=== PATIENT | male | born 1940 | race Caucasian/White ===

== ENCOUNTER → 2016-05-26 | Outpatient (CLI) | payer OTHER ==
[~2016-05-26] MED LIST: ASPI81TA28 PO; ATOR-26 PO; LSN40 PO; METO25TA56 PO; MULT-878 PO
--- NOTE | 2016-05-26 13:48 | DIAGNOSTIC IMAGING REPORT ---
RENAL ULTRASOUND HISTORY: Renal cyst N28.1 Cyst of kidney, acquired COMPARISON: MRI abdomen dated 06/07/2015 FINDINGS: Right kidney: Maximum dimension 10.9 cm. Multiple cysts measuring up to 2.9 cm, diminished somewhat from the prior study. No change overall compared to the MRI study Normal corticomedullary differentiation and cortical thickness. Left kidney: Maximum dimension 11.2 cm. Multiple cysts are again noted. Complexes produces described is now considered clear Normal corticomedullary differentiation and cortical thickness. Bladder: No bladder wall thickening. The bilateral ureteral jets were identified. IMPRESSION: Bilateral renal cysts all of which appear to be simple by ultrasound criteria. No evidence for complex cystic change. Electronically signed by: Jorge Alberto Wilson M.D. 05/26/2016 1:47 PM Dictated Date/Time: 05/26/2016 1:40 PM
== END | disposition home or self-care (01) ==
LOC: C.ULTR 12:18
PROVIDERS: ATTEND Urology
DX: N28.1 Cyst of kidney, acquired (principal)

== ENCOUNTER → 2016-06-23 | Outpatient (CLI) | payer OTHER ==
[2016-06-23 13:46] LABS: BLOOD UREA NITROGEN 29 mg/dl (7-18); BUN/CREATININE RATIO 21.9 (10-20)
== END | disposition home or self-care (01) ==
LOC: C.LABMFLN 10:51
PROVIDERS: ATTEND Urology
DX: R35.0 Frequency of micturition (principal)

== ENCOUNTER 2016-07-02 19:29 | Emergency (ER) | payer OTHER ==
[~2016-07-02] VITALS: Ht 170.2 cm; Wt 87.1 kg
[2016-07-02 19:41] VITALS: TEMP 37.3; Ht 170.2 cm; Wt 87.1 kg
[2016-07-02] MEDS ORDERED: MULT-878 PO (20:45)
[2016-07-02] MEDS ORDERED: LSN40 PO (20:45)
[2016-07-02] MEDS ORDERED: ASPI81TA28 PO (20:45)
[2016-07-02] MEDS ORDERED: ATOR-26 PO (20:45)
[2016-07-02] MEDS ORDERED: METO25TA56 PO (20:45)
[2016-07-02] MEDS ORDERED: HydrALAZINE HCL 20 MG/ML VIAL IV. STA (21:35)
[2016-07-02 21:55] VITALS: O2SAT 98
[2016-07-02 22:07] LABS: BASO % 0.4 %; BASO ABS # 0.04 K/uL (0-0.2); COMPLETE YES; EOS % 1.1 %; HEMATOCRIT 46.8 % (42-52); IG% 0.1 %; LYMPH % 18.6 %; LYMPH ABS # 1.68 K/uL (1.2-3.4); MEAN CELL VOLUME 95.7 fL (80-100); MEAN CORPUSCULAR HEMOGLOBIN 33.3 pg (25-34); MEAN CORPUSCULAR HGB CONC 34.8 g/dl (32-36); MEAN PLATELET VOLUME 11.5 fL (7.4-10.4); MONO % 14.1 %; NEUT % 65.7 %; PLATELET COUNT 194 K/uL (130-400); RED BLOOD COUNT 4.89 M/uL (4.7-6.1); WHITE BLOOD COUNT 9.02 K/uL (4.8-10.8)
--- NOTE | 2016-07-02 22:09 | DIAGNOSTIC IMAGING REPORT ---
HEAD CT NONCONTRAST CT DOSE: 537.48 mGy.cm HISTORY: Mental status change MAHMOOD, HTN TECHNIQUE: Multiaxial CT images of the head were performed without the use of intravenous contrast. Comparison: None. Findings: The paranasal sinuses and mastoid air cells are clear. The calvarium and skull base are intact. The ventricles and sulci are within normal limits. There is no mass, hematoma, midline shift, or acute infarct. Impression: No acute intracranial abnormality. Electronically signed by: Jorge Alberto Wilson M.D. 07/02/2016 10:07 PM Dictated Date/Time: 07/02/2016 10:06 PM
[2016-07-02 22:31] LABS: ALKALINE PHOSPHATASE 109 U/L (45-117); ALT/SGPT 26 U/L (12-78); AST/SGOT 26 U/L (15-37); BLOOD UREA NITROGEN 21 mg/dl (7-18); BUN/CREATININE RATIO 18.9 (10-20); CALCIUM 9.4 mg/dl (8.5-10.1); CARBON DIOXIDE 27 mmol/L (21-32); CHLORIDE 107 mmol/L (98-107); GLUCOSE 103 mg/dl (70-99); POTASSIUM 4.6 mmol/L (3.5-5.1); SODIUM 142 mmol/L (136-145)
--- NOTE | 2016-07-02 23:09 | EMERGENCY ROOM VISIT NOTE ---
ED Visit Note First contact with patient: 21:26 The patient was seen and examined with Domenica Kam PA-C. I agree with the history, physical and findings. Please see the note for disposition and details. The patient's hypertension was treated. CT Negative. The troponin was mildly elevated. The patient was feeling well. Family was updated. Consultation was made with Dr. Watts from internal medicine for further evaluation. After internal medicine evaluation, the patient had additional treatment and a repeat troponin ordered by Dr. Watts. The repeat troponin was less as reported and blood pressure was controlled. Per internal medicine, the patient preferred to go home did not want to stay in the hospital. The patient was dispositioned by Dr. Watts.
[2016-07-02 23:11] LABS: PROTHROMBIN TIME (PATIENT) 10.9 SECONDS (9.0-12.0)
[2016-07-03] MEDS ORDERED: LABETALOL HCL IV 5 MG/ML 20ML IV SCH (00:45)
--- NOTE | 2016-07-03 01:23 | History and Physical ---
History & Physical Date & Time of Service: Jul 03, 2016 at 01:05 Chief Complaint: Headache,High Bp Last 24 Hours Primary Care Physician: Gabbi Greenberg M.D. History of Present Illness Source: patient 76 y/o M Hx CAD, HTN, HPL, active prostate CA, asplenia. Had recent adjustments to his antihypertensives with D/C of Norvasc and doubling of Lisinopril. Pt developed a severe global MAHMOOD 1 day prior. Denies any associated visual changes, CP, SOB, N/V. He checked his BP and noted that it was over 180 systolic. Initial labs obtained in the ER show a borderline troponin. EKG is not consistent with ischemia and the pt does not have any related symptoms. 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 Smoking Status: Never Smoker Marital Status: Allergies Coded Allergies: Amiodarone (Verified Allergy, Unknown, rash, 07/02/16) Ciprofloxacin (Verified Allergy, Unknown, rash, 07/02/16) Home Medications Scheduled Aspirin (Aspirin Ec), 81 MG PO QAM Atorvastatin (Lipitor), 80 MG PO QPM Lisinopril (Lisinopril), 40 MG PO QAM Metoprolol Tartrate (Lopressor) (Lopressor), 25 MG PO BID Multivitamins/Minerals (Cerovite Advanced Formula), 1 TAB PO QAM Review of Systems Constitutional: No chills, No fever, No sweats Eyes: No worsening of vision ENT: No hearing loss, No nasal symptoms, No unusual epistaxis Respiratory: No cough, No sputum, No wheezing Cardiovascular: No PND, No chest pain, No orthopnea Abdomen: No nausea, No pain, No vomiting Musculoskeletal: No joint pain, No muscle pain Genitourinary - Male: No dysuria, No hematuria, No urinary frequency, No urinary urgency Neurologic: + problem reported (headache as above), No memory loss, No paralysis, No weakness Psychiatric: No depression symptoms Endocrine: No fatigue Hematologic / Lymphatic: No abnormal bleeding/bruising Integumentary: No rash Allergic / Immunologic: No environmental allergies Physical Exam Vital Signs Date Time Temp Pulse Resp B/P Pulse Ox O2 Delivery O2 Flow Rate FiO2 07/03/16 00:29 68 20 181/95 94 07/03/16 00:00 70 16 168/98 95 Room Air 07/02/16 23:26 69 20 155/89 93 Room Air 07/02/16 23:00 72 20 193/115 94 Room Air 07/02/16 22:29 66 22 07/02/16 22:17 193/97 07/02/16 21:55 98 Room Air 07/02/16 21:37 60 18 202/112 95 Room Air 07/02/16 21:37 202/122 07/02/16 21:29 60 15 07/02/16 20:29 68 22 07/02/16 20:26 98 Room Air 07/02/16 20:20 58 07/02/16 20:16 182/116 07/02/16 19:41 37.3 81 18 187/104 98 Room Air General Appearance: WD/WN, no apparent distress Head: normocephalic, atraumatic Eyes: normal inspection, PERRL, EOMI ENT: normal ENT inspection, pharynx normal Neck: supple, no JVD Respiratory/Chest: chest non-tender, lungs clear, normal breath sounds, no respiratory distress, no accessory muscle use Cardiovascular: regular rate, rhythm, no edema, no gallop Abdomen/GI: normal bowel sounds, non tender, soft Back: normal inspection, no CVA tenderness, no muscle spasm Extremities/Musculoskelatal: normal inspection, no calf tenderness, normal capillary refill 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, no motor/sensory deficits, alert, normal mood/affect, normal reflexes, oriented x 3 Skin: + pertinent finding (facial erythema) Diagnostics Laboratory Results Results Past 24 Hours Test 07/02/16 21:53 07/02/16 22:43 Range/Units White Blood Count 9.02 4.8-10.8 K/uL Red Blood Count 4.89 4.7-6.1 M/uL Hemoglobin 16.3 14.0-18.0 g/dL Hematocrit 46.8 42-52 % Mean Corpuscular Volume 95.7 80-100 fL Mean Corpuscular Hemoglobin 33.3 25-34 pg Mean Corpuscular Hemoglobin Concent 34.8 32-36 g/dl Platelet Count 194 130-400 K/uL Mean Platelet Volume 11.5 7.4-10.4 fL Neutrophils (%) (Auto) 65.7 % Lymphocytes (%) (Auto) 18.6 % Monocytes (%) (Auto) 14.1 % Eosinophils (%) (Auto) 1.1 % Basophils (%) (Auto) 0.4 % Neutrophils # (Auto) 5.92 1.4-6.5 K/uL Lymphocytes # (Auto) 1.68 1.2-3.4 K/uL Monocytes # (Auto) 1.27 0.11-0.59 K/uL Eosinophils # (Auto) 0.10 0-0.5 K/uL Basophils # (Auto) 0.04 0-0.2 K/uL RDW Standard Deviation 52.4 36.4-46.3 fL RDW Coefficient of Variation 14.8 11.5-14.5 % Immature Granulocyte % (Auto) 0.1 % Immature Granulocyte # (Auto) 0.01 0.00-0.02 K/uL Sodium Level 142 136-145 mmol/L Potassium Level 4.6 3.5-5.1 mmol/L Chloride Level 107 98-107 mmol/L Carbon Dioxide Level 27 21-32 mmol/L Anion Gap 8.0 3-11 mmol/L Blood Urea Nitrogen 21 7-18 mg/dl Creatinine 1.10 0.60-1.40 mg/dl Est Creatinine Clear Calc Drug Dose 60.2 ml/min Estimated GFR () 75.2 Estimated GFR (Non- 64.9 BUN/Creatinine Ratio 18.9 10-20 Random Glucose 103 70-99 mg/dl Calcium Level 9.4 8.5-10.1 mg/dl Total Bilirubin 0.8 0.2-1 mg/dl Direct Bilirubin 0.2 0-0.2 mg/dl Aspartate Amino Transf (AST/SGOT) 26 15-37 U/L Alanine Aminotransferase (ALT/SGPT) 26 12-78 U/L Alkaline Phosphatase 109 45-117 U/L Troponin I 0.052 0-0.045 ng/ml Total Protein 6.5 6.4-8.2 gm/dl Albumin 3.3 3.4-5.0 gm/dl Prothrombin Time 10.9 9.0-12.0 SECONDS Prothromb Time International Ratio 1.0 0.9-1.1 Activated Partial Thromboplast Time 25.0 21.0-31.0 SECONDS Partial Thromboplastin Ratio 1.0 EKG NSR Normal EKG Impression Assessment and Plan 76 y/o M Hx CAD, HTN, HPL, active prostate CA, asplenia. Had recent adjustments to his antihypertensives with D/C of Norvasc and doubling of Lisinopril. Pt developed a severe global MAHMOOD 1 day prior. Denies any associated visual changes, CP, SOB, N/V. He checked his BP and noted that it was over 180 systolic. Initial labs obtained in the ER show a borderline troponin. EKG is not consistent with ischemia and the pt does not have any related symptoms. He received an Hydralazine and Labetalol in the ER 1) HTN/MAHMOOD received Hydralazine x 1 and IV Labetalol - SBP 150 at time of D/C - no MAHMOOD 2) Borderline troponin - .05 possibly due to HTN - clinical presentation and EKG are not consistent with ACS - troponin repeat .042 Pt has been told to contact his soil checker for further medication adjustments and to discuss his ER visit for MAHMOOD related to HTN. Would recommend he continue Norvasc at 5mg in addition to his B catrachita and Lisinopril pending discussion with his soil checker. Informed to return to the ER with CP, SOB, unremitting MAHMOOD, inability to control BP for an extended period or new symptoms. Discussed above with pt , and daughter - pt stated that he prefers to go home and also has an appt with his urologist at 2:45 that he would like to attend. Resuscitation Status FULL RESUSCITATION VTE Prophylaxis Risk Level: Low
[2016-07-03 03:06] VITALS: BP 164/91; PULSE 78; O2SAT 91
--- NOTE | 2016-07-03 06:01 | EMERGENCY ROOM VISIT NOTE ---
History First contact with patient: 21:26 Chief Complaint: HYPERTENSION Stated Complaint: HEADACHE,HIGH BP LAST 24 HOURS History of Present Illness The patient is a 76 year old male who presents to the Emergency Room with complaints of severe headache and elevated blood pressure with fatigue for the past day. Blood pressure is 190/100. He describes a headache as throbbing, ranging in severity 9 out of 10 to the frontal region. Patient states one month ago his general adjuster change up his blood pressure medications from DC amlodipine and increasing lisinopril to 40 mg daily. Patient states his blood pressure was fine until yesterday. Patient denies chest pain, dyspnea, fever, chills, cough, congestion, numbness, tingling, localized weakness, abdominal pain, vision problems, vomiting, diarrhea, leg pain or swelling. No history of CVA. Review of Systems See HPI for pertinent positives & negatives. A total of 10 systems reviewed and were otherwise negative. Past Medical/Surgical History Medical Problems: (1) Coronary artery disease Surgical Problems: (1) H/O percutaneous transluminal coronary angioplasty (2) S/P CABG (coronary artery bypass graft) (3) Stented coronary artery Hypertension, hyperlipidemia, coronary disease, splenectomy Social History Smoking Status: Never Smoker Marital Status: Current/Historical Medications Scheduled Aspirin (Aspirin Ec), 81 MG PO QAM Atorvastatin (Lipitor), 80 MG PO QPM Lisinopril (Lisinopril), 40 MG PO QAM Metoprolol Tartrate (Lopressor) (Lopressor), 25 MG PO BID Multivitamins/Minerals (Cerovite Advanced Formula), 1 TAB PO QAM Allergies Coded Allergies: Amiodarone (Verified Allergy, Unknown, rash, 07/02/16) Ciprofloxacin (Verified Allergy, Unknown, rash, 07/02/16) Physical Exam Vital Signs Date Time Temp Pulse Resp B/P Pulse Ox O2 Delivery O2 Flow Rate FiO2 07/03/16 03:06 78 16 164/91 91 07/03/16 02:30 67 22 153/83 92 Room Air 07/03/16 02:04 66 20 112/62 91 Room Air 07/03/16 01:32 69 22 150/73 93 Room Air 07/03/16 01:10 71 20 147/80 92 Room Air 07/03/16 01:04 72 22 172/90 92 Room Air 07/03/16 01:01 74 22 171/100 92 Room Air 07/03/16 00:59 70 24 165/93 94 Room Air 07/03/16 00:29 68 20 181/95 94 07/03/16 00:10 75 07/03/16 00:00 70 16 168/98 95 Room Air 07/02/16 23:26 69 20 155/89 93 Room Air 07/02/16 23:00 72 20 193/115 94 Room Air 07/02/16 22:29 66 22 07/02/16 22:17 193/97 07/02/16 21:55 98 Room Air 07/02/16 21:37 60 18 202/112 95 Room Air 07/02/16 21:37 202/122 07/02/16 21:29 60 15 07/02/16 20:29 68 22 07/02/16 20:26 98 Room Air 07/02/16 20:20 58 07/02/16 20:16 182/116 07/02/16 19:41 37.3 81 18 187/104 98 Room Air Pain Rating (0-10): 0 Physical Exam VITALS: Vitals are noted on the nurse's note and reviewed by myself. Vital signs hypertensive GENERAL: Pleasant male, in no acute distress, nondiaphoretic, well-developed well-nourished. SKIN: The skin was without rashes, erythema, edema, or bruising. There is no tenting of the skin. Capillary reflex less than 2 seconds. HEAD: Normocephalic atraumatic. EARS: External auditory canals clear, tympanic membranes pearly crews without erythema or effusion bilaterally. EYES: Pupils equal round and reactive to light and accommodation. Conjunctivae without injection, sclerae without icterus. Extraocular movements intact. NOSE: Patent, turbinates without inflammation or discharge. No sinus tenderness. MOUTH: Mucous membranes moist. Pharynx without erythema or exudate. Uvula midline. Airway patent. Tongue does not deviate. NECK: Supple without nuchal rigidity. No lymphadenopathy. No thyromegaly. Cervical spine is nontender. No JVD. HEART: Regular rate and rhythm LUNGS: Clear to auscultation bilaterally without wheezes, rales or rhonchi. No dullness to percussion. No retractions or accessory muscle use. ABDOMEN: Positive bowel sounds x 4. Normal tympanic percussion. Soft, nontender, without masses or organomegaly. Sarmiento sign negative. No guarding or rebound tenderness. MUSCULOSKELETAL: No muscle atrophy, erythema, or edema noted. NEURO: Patient was alert and oriented to person place and time. Normal sensation to light and sharp touch. No focal neurological deficits. 5 out of 5 strength throughout. Cranial nerves II through XII grossly intact. No pronator drift. Cerebellar exam intact Medical Decision & Procedures Laboratory Results 07/02/16 21:53 Red Blood Count 4.89, Mean Corpuscular Volume 95.7, Mean Corpuscular Hemoglobin 33.3, Mean Corpuscular Hemoglobin Concent 34.8, Mean Platelet Volume 11.5, Neutrophils (%) (Auto) 65.7, Lymphocytes (%) (Auto) 18.6, Monocytes (%) (Auto) 14.1, Eosinophils (%) (Auto) 1.1, Basophils (%) (Auto) 0.4, Neutrophils # (Auto ) 5.92, Lymphocytes # (Auto) 1.68, Monocytes # (Auto) 1.27, Eosinophils # (Auto ) 0.10, Basophils # (Auto) 0.04 07/02/16 21:53 Test 07/02/16 21:53 07/02/16 22:43 07/03/16 01:59 White Blood Count 9.02 K/uL (4.8-10.8) Red Blood Count 4.89 M/uL (4.7-6.1) Hemoglobin 16.3 g/dL (14.0-18.0) Hematocrit 46.8 % (42-52) Mean Corpuscular Volume 95.7 fL (80-100) Mean Corpuscular Hemoglobin 33.3 pg (25-34) Mean Corpuscular Hemoglobin Concent 34.8 g/dl (32-36) Platelet Count 194 K/uL (130-400) Mean Platelet Volume 11.5 fL (7.4-10.4) Neutrophils (%) (Auto) 65.7 % Lymphocytes (%) (Auto) 18.6 % Monocytes (%) (Auto) 14.1 % Eosinophils (%) (Auto) 1.1 % Basophils (%) (Auto) 0.4 % Neutrophils # (Auto) 5.92 K/uL (1.4-6.5) Lymphocytes # (Auto) 1.68 K/uL (1.2-3.4) Monocytes # (Auto) 1.27 K/uL (0.11-0.59) Eosinophils # (Auto) 0.10 K/uL (0-0.5) Basophils # (Auto) 0.04 K/uL (0-0.2) RDW Standard Deviation 52.4 fL (36.4-46.3) RDW Coefficient of Variation 14.8 % (11.5-14.5) Immature Granulocyte % (Auto) 0.1 % Immature Granulocyte # (Auto) 0.01 K/uL (0.00-0.02) Anion Gap 8.0 mmol/L (3-11) Est Creatinine Clear Calc Drug Dose 60.2 ml/min Estimated GFR () 75.2 Estimated GFR (Non- 64.9 BUN/Creatinine Ratio 18.9 (10-20) Calcium Level 9.4 mg/dl (8.5-10.1) Total Bilirubin 0.8 mg/dl (0.2-1) Aspartate Amino Transf (AST/SGOT) 26 U/L (15-37) Alanine Aminotransferase (ALT/SGPT) 26 U/L (12-78) Alkaline Phosphatase 109 U/L (45-117) Total Protein 6.5 gm/dl (6.4-8.2) Albumin 3.3 gm/dl (3.4-5.0) Prothrombin Time 10.9 SECONDS (9.0-12.0) Prothromb Time International Ratio 1.0 (0.9-1.1) Activated Partial Thromboplast Time 25.0 SECONDS (21.0-31.0) Partial Thromboplastin Ratio 1.0 Direct Bilirubin 0.2 mg/dl (0-0.2) Troponin I 0.043 ng/ml (0-0.045) Medications Administered Medications (Trade) Dose Ordered Sig/Tico Route Start Time Stop Time Status Last Admin Dose Admin Hydralazine HCl (HydrALAZINE INJ) 10 mg NOW STAT IV. 07/02/16 21:35 07/02/16 21:38 DC 07/02/16 21:59 10 MG Labetalol HCl (Normodyne IV) 10 mg NOW IV 07/03/16 00:45 07/03/16 03:53 DC 07/03/16 00:58 10 MG ED Course Prior records/ancillary studies reviewed regarding the history above. Triage Nursing notes reviewed. Additional history obtained from the family. The patient's history was concerning for hypertension. Differential diagnosis: Etiologies such as benign hypertension, hypertensive emergency, cardiovascular pathology, pheochromocytoma, electrolyte abnormality, renal disease, endorgan damage, as well as others were entertained. Physical examination: As above. No signs of end organ damage. ER treatment provided: Hydralazine On reassessment the patient felt better. Diagnostic interpretation by me: The electrocardiogram was sinus, normal intervals, Q waves in the inferior leads , rate 62, no acute ST-T wave changes. Impression normal sinus rhythm with Q waves in inferior leads interpreted by myself. The labs revealed mildly elevated troponin. Repeat troponin is negative Imaging studies: Chest x-ray with no acute consolidation, pneumothorax free air per my interpretation HEAD CT NONCONTRAST CT DOSE: 537.48 mGy.cm HISTORY: Mental status change MAHMOOD, HTN TECHNIQUE: Multiaxial CT images of the head were performed without the use of intravenous contrast. Comparison: None. Findings: The paranasal sinuses and mastoid air cells are clear. The calvarium and skull base are intact. The ventricles and sulci are within normal limits. There is no mass, hematoma, midline shift, or acute infarct. Impression: No acute intracranial abnormality. Electronically signed by: Jorge Alberto Wilson M.D. Consultation: A consultation was placed with Dr Watts, hospitalist. The case was discussed and diagnostics were reviewed. The patient was evaluated in the ER for further treatment. This appears to be consistent with hypertensive urgency with elevated troponin. Patient will be evaluated by medicine for possible admission. Blood pressure came down with hydralazine. He does have an elevated troponin. He was neurovascularly neurologic intact. Negative head CT. By the evaluation outlined above emergent etiologies such as hypertensive emergency, pheochromocytoma, aortic dissection, pulmonary embolism, pneumonia, pneumothorax, infections, gastrointestinal, as well as others were deemed relatively unlikely. The pt informed about the findings as listed above. All questions were answered and pleased with the treatment. Case reviewed with my attending Medical Decision As above Impression Primary Impression: Hypertensive urgency Additional Impressions: Headache Elevated troponin Departure Information Dispostion Home / Self-Care Condition GOOD Referrals Gabbi Greenberg M.D. (PCP) Forms WORK / SCHOOL INSTRUCTIONS, HOME CARE DOCUMENTATION FORM, IMPORTANT VISIT INFORMATION Patient Instructions My [facility] Problem Qualifiers
--- NOTE | 2016-07-03 07:33 | DIAGNOSTIC IMAGING REPORT ---
SINGLE VIEW CHEST CLINICAL HISTORY: Hypertension. Elevated troponin levels. FINDINGS: 2 AP, portable, upright chest radiographs are obtained. No prior studies are available for comparison at the time of dictation. The examination is degraded by portable technique and apical lordotic positioning. The patient is status post midline sternotomy. The heart is enlarged and there is atherosclerotic calcification of the thoracic aorta. Nonspecific interstitial thickening is noted. No airspace consolidation, large pleural effusion, or pneumothorax is seen. Calcified pleural plaque is suggested at the right lung base. There is bibasilar atelectasis. The skeletal structures are osteopenic. Degenerative change is noted throughout the thoracic spine. IMPRESSION: Cardiomegaly with no acute cardiopulmonary abnormality. Electronically signed by: Greg Foster M.D. 07/03/2016 7:31 AM Dictated Date/Time: 07/03/2016 7:30 AM
== END 2016-07-03 03:26 | disposition home or self-care (01) ==
LOC: C.EDB 19:31
DX: I16.0 Hypertensive urgency (principal); R51 Headache; R79.89 Other specified abnormal findings of blood chemistry; I10 Essential (primary) hypertension; I25.10 Atherosclerotic heart disease of native coronary artery without angina pectoris; E78.5 Hyperlipidemia, unspecified; Z95.1 Presence of aortocoronary bypass graft; Z98.61 Coronary angioplasty status; Z98.890 Other specified postprocedural states; Z79.82 Long term (current) use of aspirin; Z79.899 Other long term (current) drug therapy; Z88.2 Allergy status to sulfonamides; Z88.8 Allergy status to other drugs, medicaments and biological substances

== ENCOUNTER → 2016-08-23 | Outpatient (CLI) | payer OTHER ==
[~2016-08-23] MED LIST changes: +DOXY100C76 PO; +TAMS0.4C38 PO
[2016-08-23 17:53] LABS: BASO % 0.7 %; BASO ABS # 0.05 K/uL (0-0.2); COMPLETE YES; EOS % 0.8 %; HEMATOCRIT 44.4 % (42-52); IG% 0.1 %; LYMPH % 22.9 %; LYMPH ABS # 1.62 K/uL (1.2-3.4); MEAN CELL VOLUME 99.1 fL (80-100); MEAN CORPUSCULAR HGB CONC 33.3 g/dl (32-36); MEAN PLATELET VOLUME 11.2 fL (7.4-10.4); MONO % 18.7 %; NEUT % 56.8 %; PLATELET COUNT 192 K/uL (130-400); RED BLOOD COUNT 4.48 M/uL (4.7-6.1); WHITE BLOOD COUNT 7.07 K/uL (4.8-10.8)
[2016-08-23 18:26] LABS: HDL CHOLESTEROL 41 mg/dl
[2016-08-23 18:29] LABS: ALB/GLOB RATIO 1.1 (0.9-2); ALKALINE PHOSPHATASE 123 U/L (45-117); ALT/SGPT 28 U/L (12-78); AST/SGOT 27 U/L (15-37); BLOOD UREA NITROGEN 27 mg/dl (7-18); BUN/CREATININE RATIO 22.6 (10-20); CALCIUM 9.5 mg/dl (8.5-10.1); CARBON DIOXIDE 29 mmol/L (21-32); CHLORIDE 106 mmol/L (98-107); GLUCOSE 86 mg/dl (70-99); POTASSIUM 4.6 mmol/L (3.5-5.1); SODIUM 140 mmol/L (136-145)
[2016-08-23 18:30] LABS: CHOLESTEROL 110 mg/dl (0-200); CHOLESTEROL/HDL RATIO 2.7; LDL CHOLESTEROL CALCULATED 58 mg/dl; TRIGLYCERIDES 54 mg/dl (0-150); VERY LOW DENSITY LIPOPROT CALC 11 mg/dl
== END | disposition home or self-care (01) ==
LOC: C.LABMFLN 10:26
PROVIDERS: ATTEND Family Medicine
DX: I10 Essential (primary) hypertension (principal); E78.5 Hyperlipidemia, unspecified

== ENCOUNTER → 2017-02-09 | Outpatient (CLI) | payer OTHER ==
[2017-02-09 17:51] LABS: BLOOD UREA NITROGEN 36 mg/dl (7-18); CARBON DIOXIDE 24 mmol/L (21-32); CHLORIDE 106 mmol/L (98-107); CREATININE 1.58 mg/dl (0.60-1.40); GLUCOSE 111 mg/dl (70-99); POTASSIUM 4.6 mmol/L (3.5-5.1); SODIUM 138 mmol/L (136-145)
[2017-02-09 17:52] LABS: ALT/SGPT 39 U/L (12-78); AST/SGOT 43 U/L (15-37); CALCIUM 8.8 mg/dl (8.5-10.1)
[2017-02-09 17:56] LABS: ALB/GLOB RATIO 0.9 (0.9-2); ALKALINE PHOSPHATASE 113 U/L (45-117)
[2017-02-09 18:12] LABS: BASO % 0.6 %; BASO ABS # 0.03 K/uL (0-0.2); COMPLETE YES; EOS % 2.3 %; HEMATOCRIT 40.9 % (42-52); IG% 0.2 %; LYMPH % 21.6 %; LYMPH ABS # 1.13 K/uL (1.2-3.4); MEAN CELL VOLUME 95.6 fL (80-100); MEAN CORPUSCULAR HEMOGLOBIN 32.7 pg (25-34); MEAN CORPUSCULAR HGB CONC 34.2 g/dl (32-36); MEAN PLATELET VOLUME 10.5 fL (7.4-10.4); MONO % 16.7 %; NEUT % 58.6 %; PLATELET COUNT 147 K/uL (130-400); RED BLOOD COUNT 4.28 M/uL (4.7-6.1); WHITE BLOOD COUNT 5.22 K/uL (4.8-10.8)
[2017-02-09 18:22] LABS: LYME DISEASE AB IGM NEG (NEG)
[2017-02-09 18:25] LABS: LYME DISEASE AB IGG NEG (NEG)
[2017-02-14 14:31] LABS: RMSF IgM AB Not Detected (Not Detected)
== END | disposition home or self-care (01) ==
LOC: C.LABMFLN 15:15
PROVIDERS: ATTEND Family Medicine Adult Medicine
DX: R50.9 Fever, unspecified (principal); R97.20 Elevated prostate specific antigen [PSA]

== ENCOUNTER 2017-02-12 17:43 | Emergency (ER) | payer OTHER ==
[~2017-02-12] VITALS: Ht 172.7 cm; Wt 82.9 kg
[~2017-02-12 17:43] MED LIST changes: -ASPI81TA28 PO; -ATOR-26 PO; -DOXY100C76 PO; -LSN40 PO; -METO25TA56 PO; -TAMS0.4C38 PO
[2017-02-12 17:54] VITALS: TEMP 37.6; Ht 172.7 cm; Wt 82.9 kg
[2017-02-12] MEDS ORDERED: DiphenhydrAMINE HCL 50 MG/ML VIAL IV STA (18:20)
[2017-02-12] MEDS ORDERED: SODIUM CHLORIDE 0.9% 1000ML 1,000 ML IV STA ×2 (18:20)
[2017-02-12] MEDS ORDERED: DOXY100C76 PO (18:22)
[2017-02-12] MEDS ORDERED: TAMS0.4C38 PO (18:22)
[2017-02-12] MEDS ORDERED: DEXAMETHASONE SOD INJ 10 MG/ML VIAL IV ONE (18:30)
--- NOTE | 2017-02-12 18:37 | EMERGENCY ROOM VISIT NOTE ---
History Report prepared by Zi: Roxanne Howard Under the Supervision of: Dr. Marcial Patton M.D. First contact with patient: 18:07 Chief Complaint: RASH Stated Complaint: RASH, FEVER- PHYSICIAN REFERRED History of Present Illness The patient is a 76 year old male who presents to the Emergency Room with complaints of a worsening rash that started 4 days ago. The patient states that the rash started on the bottom of his legs and is spreading up his body. He notes that he went to his doctor's office 3 days ago and they ran some tests but the results came back negative. His doctor put him on doxycycline. They recommended the patient come to the ED for further evaluation. The patient states he was experiencing pain in his legs 4 days ago and the rash followed. He notes that he is not feeling any pain in his legs in the ED. The patient states that the rash does not itch. He reports that he has had an intermittent fever since Sunday. He notes that his fever was 102 on Sunday and Sunday. When he took it today, it was 100. The patient states that he feels fine today but the rash is continuing to spread. He notes that the swelling in his legs is normal. The patient denies any pain in his joints. He also denies a cough, chest pain, vomiting, diarrhea, shortness of breath, and urine changes. He notes that he has been experiencing intermittent chills for the past 3 days. The patient reports that he has no pain in his joints. He notes that he is allergic to Cipro and Amiodarone. The patient denies seeing any ticks in the past several days. Source of History: patient Onset: 4 days ago Position: other (global) Quality: other (rash) Timing: worsening Associated Symptoms: + chills, No cough, No chest pain, No SOB, No vomiting , No abdominal pain, No diarrhea, No urinary symptoms Review of Systems See HPI for pertinent positives and negatives. A total of ten systems were reviewed and were otherwise negative. Past Medical & Surgical Medical Problems: (1) Coronary artery disease Surgical Problems: (1) H/O percutaneous transluminal coronary angioplasty (2) S/P CABG (coronary artery bypass graft) (3) Stented coronary artery Social History Smoking Status: Former Smoker Marital Status: Current/Historical Medications Scheduled Aspirin (Aspirin Ec), 81 MG PO QAM Atorvastatin (Lipitor), 80 MG PO QPM Doxycycline Monohydrate (Monodox), 100 MG PO BID Lisinopril (Lisinopril), 40 MG PO QAM Metoprolol Tartrate (Lopressor) (Lopressor), 25 MG PO BID Tamsulosin Hcl (Flomax), 0.4 MG PO QPM Allergies Coded Allergies: Amiodarone (Verified Allergy, Unknown, rash, 02/12/17) Ciprofloxacin (Verified Allergy, Unknown, rash, 02/12/17) Physical Exam Vital Signs Date Time Temp Pulse Resp B/P (MAP) Pulse Ox O2 Delivery O2 Flow Rate FiO2 02/12/17 22:14 81 18 158/94 93 02/12/17 20:15 78 18 149/82 93 Room Air 02/12/17 17:54 37.6 89 20 153/78 93 Room Air Physical Exam GENERAL: Awake, alert, well-appearing, in no distress HENT: Normocephalic, atraumatic. Oropharynx unremarkable. Mildly dry mucus membranes. No injection, edema, or lesions in oral pharynx. EYES: Normal conjunctiva. Sclera non-icteric. NECK: Supple. No nuchal rigidity. FROM. No JVD. RESPIRATORY: Clear to auscultation. CARDIAC: Regular rate, normal rhythm. Extremities warm and well perfused. Pulses equal. ABDOMEN: Soft, non-distended. No tenderness to palpation. No rebound or guarding. No masses. RECTAL: Deferred. MUSCULOSKELETAL: Chest examination reveals no tenderness. The back is symmetrical on inspection without obvious abnormality. There is no CVA tenderness to palpation. No joint edema. LOWER EXTREMITIES: Calves are equal size bilaterally and non-tender. No discoloration. 1+lower bilateral extremity edema. NEURO: Normal sensorium. No sensory or motor deficits noted. SKIN: Diffused body rash consists of scattered petechiae purpura in BLE, with upper torso/BUE patches of non raised blanchable erythema with scattered petechiae. No warmth or crepitus. Non-pruritic, non-tender. No palm or sole involvement. Medical Decision & Procedures ER Provider Diagnostic Interpretation: Radiology results as stated below per my review and radiologist interpretation: CHEST ONE VIEW PORTABLE CLINICAL HISTORY: ABDOMINAL PAIN/GI pain COMPARISON STUDY: 07/02/2016 FINDINGS: Mild cardiomegaly. Median sternotomy. Chronic bibasilar interstitial prominence. Mid and upper lungs are considered clear. IMPRESSION: Mild cardiomegaly. Chronic bibasilar interstitial change. The above report was generated using voice recognition software. It may contain grammatical, syntax or spelling errors. Electronically signed by: Jorge Alberto Wilson M.D. 02/12/2017 7:06 PM Dictated Date/Time: 02/12/2017 7:05 PM Laboratory Results 02/12/17 19:10 Red Blood Count 4.45, Mean Corpuscular Volume 94.8, Mean Corpuscular Hemoglobin 32.1, Mean Corpuscular Hemoglobin Concent 33.9, Mean Platelet Volume 11.5, Neutrophils (%) (Auto) 70.0, Lymphocytes (%) (Auto) 17.0, Monocytes (%) (Auto) 10.1, Eosinophils (%) (Auto) 1.9, Basophils (%) (Auto) 0.6, Neutrophils # (Auto ) 3.62, Lymphocytes # (Auto) 0.88, Monocytes # (Auto) 0.52, Eosinophils # (Auto ) 0.10, Basophils # (Auto) 0.03 02/12/17 19:10 Test 02/12/17 19:10 02/12/17 20:15 02/12/17 21:28 White Blood Count 5.17 K/uL (4.8-10.8) Red Blood Count 4.45 M/uL (4.7-6.1) Hemoglobin 14.3 g/dL (14.0-18.0) Hematocrit 42.2 % (42-52) Mean Corpuscular Volume 94.8 fL (80-100) Mean Corpuscular Hemoglobin 32.1 pg (25-34) Mean Corpuscular Hemoglobin Concent 33.9 g/dl (32-36) Platelet Count 161 K/uL (130-400) Mean Platelet Volume 11.5 fL (7.4-10.4) Neutrophils (%) (Auto) 70.0 % Lymphocytes (%) (Auto) 17.0 % Monocytes (%) (Auto) 10.1 % Eosinophils (%) (Auto) 1.9 % Basophils (%) (Auto) 0.6 % Neutrophils # (Auto) 3.62 K/uL (1.4-6.5) Lymphocytes # (Auto) 0.88 K/uL (1.2-3.4) Monocytes # (Auto) 0.52 K/uL (0.11-0.59) Eosinophils # (Auto) 0.10 K/uL (0-0.5) Basophils # (Auto) 0.03 K/uL (0-0.2) RDW Standard Deviation 51.8 fL (36.4-46.3) RDW Coefficient of Variation 14.8 % (11.5-14.5) Immature Granulocyte % (Auto) 0.4 % Immature Granulocyte # (Auto) 0.02 K/uL (0.00-0.02) Erythrocyte Sedimentation Rate 15 mm/hr (0-14) Anion Gap 7.0 mmol/L (3-11) Est Creatinine Clear Calc Drug Dose 46.4 ml/min Estimated GFR () 55.2 Estimated GFR (Non- 47.6 BUN/Creatinine Ratio 23.6 (10-20) Lactic Acid Level 1.3 mmol/L (0.4-2.0) Calcium Level 9.3 mg/dl (8.5-10.1) Total Bilirubin 0.6 mg/dl (0.2-1) Direct Bilirubin 0.1 mg/dl (0-0.2) Aspartate Amino Transf (AST/SGOT) 38 U/L (15-37) Alanine Aminotransferase (ALT/SGPT) 37 U/L (12-78) Alkaline Phosphatase 99 U/L (45-117) Total Creatine Kinase 155 U/L (39-308) C-Reactive Protein 1.34 mg/dl (0-0.29) Total Protein 6.3 gm/dl (6.4-8.2) Albumin 2.9 gm/dl (3.4-5.0) Lipase 377 U/L (73-393) Urine Color YELLOW Urine Appearance CLEAR (CLEAR) Urine pH 5.0 (4.5-7.5) Urine Specific [place] 1.026 (1.000-1.030) Urine Protein TRACE (NEG) Urine Glucose (UA) NEG (NEG) Urine Ketones NEG (NEG) Urine Occult Blood NEG (NEG) Urine Nitrite NEG (NEG) Urine Bilirubin NEG (NEG) Urine Urobilinogen NEG (NEG) Urine Leukocyte Esterase NEG (NEG) Urine WBC (Auto) 1-5 /hpf (0-5) Urine RBC (Auto) 5-10 /hpf (0-4) Urine Hyaline Casts (Auto) 1-5 /lpf (0-5) Urine Epithelial Cells (Auto) 10-20 /lpf (0-5) Urine Bacteria (Auto) NEG (NEG) Prothrombin Time 11.9 SECONDS (9.0-12.0) Prothromb Time International Ratio 1.1 (0.9-1.1) Activated Partial Thromboplast Time 27.4 SECONDS (21.0-31.0) Partial Thromboplastin Ratio 1.1 Lyme Disease IgG Antibody NEG (NEG) Lyme Disease IgM Antibody NEG (NEG) Laboratory results reviewed by me Medications Administered Medications (Trade) Dose Ordered Sig/[place] Route Start Time Stop Time Status Last Admin Dose Admin Sodium Chloride 1,000 ml @ 999 mls/hr Q1H1M STAT IV 02/12/17 18:20 02/12/17 19:20 DC 02/12/17 19:13 999 MLS/HR Dexamethasone Sodium Phosphate (Decadron Inj) 10 mg NOW ONCE IV 02/12/17 18:30 02/12/17 18:31 DC 02/12/17 19:13 10 MG Sodium Chloride 1,000 ml @ 999 mls/hr Q1H1M STAT IV 02/12/17 18:20 02/12/17 19:20 DC 02/12/17 19:13 999 MLS/HR Diphenhydramine HCl (Benadryl Inj) 25 mg NOW STAT IV 02/12/17 18:20 02/12/17 18:26 DC 02/12/17 19:14 25 MG ED Course 180: The patient was evaluated in room B12B. A complete history and physical exam was performed. 1820: Benadryl Inj 25 mg IV, Sodium Chloride 1000 ml @ 999 mls/hr IV[, Sodium Chloride 1000 ml @ 999 mls/hr IV. 0: Decadron Inj 10 mg IV. 2135: I spoke with case management. They contacted [facility] and Dr. Zamudio, Dermatology is not in the office today. She will be contacted tomorrow. 2149: Upon reexamination, the patient was resting comfortably. I discussed the test results and treatment plan with him. The patient will follow up with Dr. Zamudio, Dermatology. He is ready for discharge. Medical Decision I reviewed the patient's past medical history, medications, and the nursing notes as described above. Differential diagnosis includes but is not limited to: viral illness, allergic reaction, drug reaction, sepsis. The patient is a 76-year-old gentleman who presents to emergency Department with worsening full body rash and intermittent fevers over the weekend after being treated with doxycycline on for lower extremity rash with a question of cellulitis per history of present illness. Arrival the patient reports feeling fine only that the rash persists which she describes as nonpainful and non-pruritic. Temp is 37.6. Heart rate 89 and vital signs otherwise stable. He has a diffuse petechial, purpural rash in BLE and diffuse petechial, erythematous flat blanchable rash in torso and and BUE. Patient given empiric dose of dex given some blanchable patches. The patient denies any sun exposure is while on doxycycline stayed mostly indoors resting. Neck supple , FROM without meningismus. Platelets 160s. Cr similar to recent. ESR and CRP marginally elevated. Coags wnl. While patient did have recent negative RMSF and lyme screen, will repeat today given rash and h/o fevers. Patient's any gum bleeding although he does have complete dentures. Scurvy possible as well, although fever not typical and patient denies poor diet. Given the patient is relatively well appearing and denying sx at this time. Outpatient management is appropriate. Will continue doxy at this time until RMSF and lyme result. CM assisting to arrange derm f/u promptly for likely biopsy. Findings and plan for follow-up reviewed with patient. Patient agreeable and d/c'd per discharge instructions. Medication Reconcilliation Current Medication List: was personally reviewed by me Blood Pressure Screening Patient's blood pressure: Elevated blood pressure Blood pressure disposition: Referred to PCP Impression Primary Impression: Petechial rash Scribe Attestation The scribe's documentation has been prepared under my direction and personally reviewed by me in its entirety. I confirm that the note above accurately reflects all work, treatment, procedures, and medical decision making performed by me. Departure Information Dispostion Home / Self-Care Referrals Gabbi Greenberg M.D. (PCP) Betty Zamudio M.D. Patient Instructions ED Petechiae , My [facility], Rash - [facility], [place] Spotted Fever Additional Instructions Please follow up with dermatology, Dr. Zamudio, tomorrow and with your primary care physician in the next 1-3 days for re-evaluation. Our case management will assist to obtain and dermatology. The cause of your rash is unclear at this time. Otherwise, your exam, chest xray, and lab results did not show signs of an emergent condition at this time. Continue your antibiotics at this time until your repeat lab tests for [place] Spotted fever and Lyme return or your symptoms resolve. Return to the emergency department for worsening symptoms as described in the accompanying instructions.
--- NOTE | 2017-02-12 19:07 | DIAGNOSTIC IMAGING REPORT ---
CHEST ONE VIEW PORTABLE CLINICAL HISTORY: ABDOMINAL PAIN/GI pain COMPARISON STUDY: 07/02/2016 FINDINGS: Mild cardiomegaly. Median sternotomy. Chronic bibasilar interstitial prominence. Mid and upper lungs are considered clear. IMPRESSION: Mild cardiomegaly. Chronic bibasilar interstitial change. The above report was generated using voice recognition software. It may contain grammatical, syntax or spelling errors. Electronically signed by: Jorge Alberto Wilson M.D. 02/12/2017 7:06 PM Dictated Date/Time: 02/12/2017 7:05 PM
[2017-02-12 19:35] LABS: BASO % 0.6 %; BASO ABS # 0.03 K/uL (0-0.2); COMPLETE YES; EOS % 1.9 %; HEMATOCRIT 42.2 % (42-52); IG% 0.4 %; LYMPH ABS # 0.88 K/uL (1.2-3.4); MEAN CELL VOLUME 94.8 fL (80-100); MEAN CORPUSCULAR HEMOGLOBIN 32.1 pg (25-34); MEAN CORPUSCULAR HGB CONC 33.9 g/dl (32-36); MEAN PLATELET VOLUME 11.5 fL (7.4-10.4); MONO % 10.1 %; PLATELET COUNT 161 K/uL (130-400); RED BLOOD COUNT 4.45 M/uL (4.7-6.1); WHITE BLOOD COUNT 5.17 K/uL (4.8-10.8)
[2017-02-12 20:04] LABS: BUN/CREATININE RATIO 23.6 (10-20); C-REACTIVE PROTEIN 1.34 mg/dl (0-0.29); CALCIUM 9.3 mg/dl (8.5-10.1); CREATININE 1.42 mg/dl (0.60-1.40); POTASSIUM 4.3 mmol/L (3.5-5.1)
[2017-02-12 20:45] LABS: URINE APPEARANCE CLEAR (CLEAR); URINE BILIRUBIN NEG (NEG); URINE COLOR YELLOW; URINE NITRITE NEG (NEG); URINE SPECIFIC GRAVITY 1.026 (1.000-1.030); UROBILINOGEN NEG (NEG); ZZUR CULT IF INDIC CLEAN CATCH NO
[2017-02-12] MEDS ORDERED: METO25TA56 PO (20:45)
[2017-02-12] MEDS ORDERED: LSN40 PO (20:45)
[2017-02-12] MEDS ORDERED: ATOR-26 PO (20:45)
[2017-02-12] MEDS ORDERED: ASPI81TA28 PO (20:45)
[2017-02-12 20:50] LABS: MANUAL MICROSCOPIC REQUIRED? NO; REVIEW REQ? NO
[2017-02-12 21:59] LABS: INR 1.1 (0.9-1.1); PARTIAL THROMBOPLASTIN RATIO 1.1; PROTHROMBIN TIME (PATIENT) 11.9 SECONDS (9.0-12.0)
[2017-02-12 22:14] VITALS: BP 158/94; PULSE 81; O2SAT 93
[2017-02-12 22:49] LABS: LYME DISEASE AB IGG NEG (NEG); LYME DISEASE AB IGM NEG (NEG)
[2017-02-15 13:30] LABS: RMSF IgM AB Not Detected (Not Detected)
== END 2017-02-12 22:09 | disposition home or self-care (01) ==
LOC: C.EDB 17:44
DX: R21 Rash and other nonspecific skin eruption (principal); I25.10 Atherosclerotic heart disease of native coronary artery without angina pectoris; Z95.1 Presence of aortocoronary bypass graft; Z95.5 Presence of coronary angioplasty implant and graft; Z87.891 Personal history of nicotine dependence; Z79.82 Long term (current) use of aspirin

== ENCOUNTER → 2017-03-16 | Outpatient (CLI) | payer OTHER ==
[~2017-03-16] MED LIST changes: +ASPI81TA28 PO; +ATOR-26 PO; +DOXY100C76 PO; +LSN40 PO; +METO25TA56 PO; -MULT-878 PO; +TAMS0.4C38 PO
[2017-03-16 13:19] LABS: BLOOD UREA NITROGEN 30 mg/dl (7-18); BUN/CREATININE RATIO 23.9 (10-20); CALCIUM 8.9 mg/dl (8.5-10.1); CARBON DIOXIDE 28 mmol/L (21-32); CHLORIDE 106 mmol/L (98-107); CREATININE 1.26 mg/dl (0.60-1.40); GLUCOSE 102 mg/dl (70-99); POTASSIUM 4.4 mmol/L (3.5-5.1); SODIUM 137 mmol/L (136-145)
[2017-03-16 13:28] LABS: PHOSPHORUS 2.5 mg/dl (2.5-4.9)
[2017-03-16 13:37] LABS: BASO % 0.7 %; BASO ABS # 0.05 K/uL (0-0.2); COMPLETE YES; HEMATOCRIT 41.9 % (42-52); IG% 0.3 %; MEAN CELL VOLUME 97.9 fL (80-100); MEAN CORPUSCULAR HEMOGLOBIN 33.2 pg (25-34); MEAN CORPUSCULAR HGB CONC 33.9 g/dl (32-36); MEAN PLATELET VOLUME 11.8 fL (7.4-10.4); MONO % 20.1 %; NEUT % 59.9 %; PLATELET COUNT 202 K/uL (130-400); RED BLOOD COUNT 4.28 M/uL (4.7-6.1); WHITE BLOOD COUNT 7.63 K/uL (4.8-10.8)
== END | disposition home or self-care (01) ==
LOC: C.LABMFLN 09:29
PROVIDERS: ATTEND Family Medicine
DX: I10 Essential (primary) hypertension (principal); M79.1 Myalgia; R68.89 Other general symptoms and signs

== ENCOUNTER → 2017-05-02 | Outpatient (CLI) | payer OTHER | END | disposition home or self-care (01) | LOC: C.LABMFLN 09:16 | PROVIDERS: ATTEND Nurse Practitioner Adult Health | DX: R35.0 Frequency of micturition (principal); R35.1 Nocturia; R30.0 Dysuria; R39.15 Urgency of urination ==

== ENCOUNTER → 2017-05-30 | Outpatient (CLI) | payer OTHER | LOC: C.LABSPEC 10:26 | PROVIDERS: ATTEND Urology | DX: N40.1 Benign prostatic hyperplasia with lower urinary tract symptoms (principal); R35.0 Frequency of micturition; N28.89 Other specified disorders of kidney and ureter; R97.20 Elevated prostate specific antigen [PSA]; N28.1 Cyst of kidney, acquired; C61 Malignant neoplasm of prostate; N39.0 Urinary tract infection, site not specified; R39.15 Urgency of urination ==

== ENCOUNTER → 2017-06-28 | Outpatient (CLI) | payer OTHER ==
--- NOTE | 2017-06-28 09:47 | DIAGNOSTIC IMAGING REPORT ---
ABD/PELVIS NO IV OR ORAL CONT CLINICAL HISTORY: 77 years-old Male presenting with R35.0 Urinary frequency C61 Prostate cancer R39.15 Urinary urgency. TECHNIQUE: Multidetector CT of the abdomen and pelvis was performed without the use of intravenous contrast. IV contrast: None. A dose lowering technique was used consistent with the principles of ALARA (as low as reasonably achievable). COMPARISON: MR from 06/07/[address] from 02/16/2012. CT DOSE (mGy.cm): The estimated cumulative dose is 496.75 mGy.cm. FINDINGS: Medical Microbiologist topogram: Median sternotomy wires noted. Lung bases: Subpleural reticulation with associated pleural thickening and calcified pleural plaques. Multichamber enlargement of the heart. Coronary artery calcification. No pericardial or pleural effusion. Liver: Normal morphology. Normal density. Several indeterminate hypodensities, possibly hepatic cysts. Biliary: No gross biliary ductal dilatation allowing for noncontrast technique. Normal gallbladder. Pancreas: Mild parenchymal atrophy. Spleen: Surgically absent. Adrenal glands: Normal noncontrast appearance. Kidneys and ureters: Multiple well-defined hypodense lesions likely simple cysts varied additionally isodense lesion at the lower pole of the left kidney measuring 2.3 cm and is minimally increased in size from prior exam in 2012, which is at the previous site of a simple cyst that measured 1.9 cm, possibly hemorrhagic or proteinaceous cyst. A hyperdense lesion at the upper pole the left kidney measures 9 mm, which is at the site of a previously demonstrated simple cyst. No nephrolithiasis. No hydronephrosis. Ureters normal. Bladder: Mild circumferential bladder wall thickening though the bladder is under distended. Pelvic organs: The prostate is mildly enlarged with subtle periprosthetic fat infiltration. Seminal vesicles nondistended though with mild surrounding fat infiltration. Bowel: Limited diverticulosis of the sigmoid colon. The appendix is normal. No bowel obstruction. Peritoneal cavity: No free fluid or intraperitoneal gas. Lymph nodes: No gross lymphadenopathy allowing for noncontrast technique. Vasculature: Significant contour irregularity of the abdominal aorta, which demonstrate diffuse atherosclerosis. Significant atherosclerosis of the origins of the renal arteries and superior mesenteric artery. Infrarenal abdominal aortic aneurysm measuring 3.6 cm in diameter. Internal displacement of intimal calcifications immediately proximal to the aortic bifurcation also suggests chronic dissection, which is poorly evaluated without contrast. Abdominal wall: Postsurgical changes of the ventral supra umbilical abdominal wall. Musculoskeletal: Degenerative changes of the spine. Bunionectomy changes at L2-L5. IMPRESSION: 1. Mild enlargement and surrounding inflammatory change at the prostate and seminal vesicles raises concern for prostatitis. Bladder wall thickening could also suggest cystitis. Correlate with urinalysis. No CT evidence of pyelonephritis or hydronephrosis. 2. Multiple renal cysts some of which likely contain hemorrhage or proteinaceous material though these are incompletely evaluated without contrast. 3. Infrarenal abdominal aortic aneurysm with possible chronic dissection immediately proximal to the bifurcation. Electronically signed by: Wilber Jones M.D. 06/28/2017 9:46 AM Dictated Date/Time: 06/28/2017 9:34 AM
== END | disposition home or self-care (01) ==
LOC: C.CTS 09:12
PROVIDERS: ATTEND Urology
DX: C61 Malignant neoplasm of prostate (principal); R35.0 Frequency of micturition; N39.0 Urinary tract infection, site not specified; R39.15 Urgency of urination

== ENCOUNTER → 2017-07-18 | Outpatient (CLI) | payer OTHER | END | disposition home or self-care (01) | LOC: C.LABSPEC 11:25 | PROVIDERS: ATTEND Urology | DX: R35.0 Frequency of micturition (principal); C61 Malignant neoplasm of prostate; R39.15 Urgency of urination ==

== ENCOUNTER → 2017-07-30 | Outpatient (CLI) | payer OTHER ==
[~2017-07-30] MED LIST changes: +AMLO-110 PO; +FINA5TAB PO; +MULT-878 PO
--- NOTE | 2017-08-14 14:58 | CODING QUERY NO DIAGNOSIS ---
TREATMENT RENDERED WITHOUT A DIAGNOSIS 40 To promote full compliance with coding requirements relating to patient care, physician participation is requested in all cases of navy diver uncertainty. Please assist us with providing a diagnosis/symptom for the test(s) below: A diagnosis/symptom was not documented on your Order. A valid diagnosis/symptom is required to bill all insurances. Please remember that we are unable to code a diagnosis of rule out, probable, possible, questionable, or suspected. DOS 07/30/17 Tests that require a diagnosis: * PSA DIAGNOSIS: Provider Signature: Date: Thank you Tonya Lomax [place] Information Management Once completed, please kindly fax back to [phone] For questions please call [phone]
== END | disposition home or self-care (01) ==
LOC: C.LAB 14:31
PROVIDERS: ATTEND Urology
DX: C61 Malignant neoplasm of prostate (principal)

== ENCOUNTER → 2017-08-07 | Outpatient (CLI) | payer OTHER ==
[~2017-08-07] MED LIST changes: -DOXY100C76 PO
--- NOTE | 2017-08-07 16:11 | DIAGNOSTIC IMAGING REPORT ---
PROSTATE MRI COMBO CLINICAL HISTORY: 77-year-old male with biopsy-proven prostate cancer. No treatment TECHNIQUE: Multisequence, multiplanar MR imaging of the prostate was performed before and after the intravenous ministration of 8.5 cc of Gadavist. Additional postprocessing was performed on a separate [employer] workstation by the radiologist for 3-D volumetric segmentation of the prostate and contouring of region(s) of interest (MEÑO) for targeting. COMPARISON: CT of the abdomen and pelvis June 28, 2017. FINDINGS: Prostate: The prostate measures 4.6 x 4.5 x 4.8 cm (Dyna[employer] prostate boundary segmentation volume 43.77 mL). Moderate changes of benign prostatic hyperplasia. Precontrast T1 weighted imaging demonstrates no evidence of intrinsic T1 hyperintensity to suggest hemorrhage. There are no areas of diminished signal intensity on the ADC sequence. There is no evidence for significant restricted diffusion within the prostate gland. Note is made of mild homogeneous increased signal intensity within the peripheral zone of the prostate gland on the diffusion-weighted sequence. There is subtle T2 hyperintensity throughout the peripheral zone without discrete lesion. The adjacent soft tissues are unremarkable. Seminal vesicles normal. Bladder: Normal. Bowel: Visualized portion of the rectum normal. Peritoneum: No free fluid in the pelvis. Lymph nodes: No lymphadenopathy in the visualized portion of the pelvis. Vasculature: Iliac vessels patent. Abdominal wall: Normal. Osseous structures: Normal bone marrow signal intensity. IMPRESSION: 1. No overtly suspicious lesion identified within the prostate gland. Subtle signal abnormality throughout the peripheral zone on the T2 and diffusion-weighted sequences without discrete lesion. This study is considered a PI-RADS 2 study: low (clinically significant cancer is unlikely to be present). 2. Moderate benign prostatic hyperplasia. Electronically signed by: Edgardo King M.D. 08/07/2017 4:10 PM Dictated Date/Time: 08/07/2017 12:35 PM
== END | disposition home or self-care (01) ==
LOC: C.MRIBC 09:22
PROVIDERS: ATTEND Urology
DX: R35.0 Frequency of micturition (principal); N40.0 Benign prostatic hyperplasia without lower urinary tract symptoms

== ENCOUNTER 2017-08-24 07:25 | Inpatient (IN) | payer OTHER ==
[2017-07-30 13:58] VITALS: Ht 172.7 cm; Wt 88.5 kg
--- NOTE | 2017-07-30 15:16 | DIAGNOSTIC IMAGING REPORT ---
CHEST 2 VIEWS ROUTINE CLINICAL HISTORY: Preoperative chest COMPARISON STUDY: 02/12/2017 FINDINGS: There are postsurgical changes of a midline sternotomy. The heart is normal in size. There is no failure. There is stable aortic tortuosity/ectasia. There is no focal pulmonary consolidation. There is chronic basilar interstitial thickening/atelectasis.[ IMPRESSION: No active disease in the chest. Electronically signed by: Harman Anne M.D. 07/30/2017 3:15 PM Dictated Date/Time: 07/30/2017 3:14 PM
[2017-07-30 15:48] LABS: ALBUMIN 3.1 gm/dl (3.4-5.0); CALCIUM 9.3 mg/dl (8.5-10.1); CREATININE 1.23 mg/dl (0.60-1.40); POTASSIUM 4.6 mmol/L (3.5-5.1)
[2017-07-30 15:49] LABS: BASO % 0.5 %; BASO ABS # 0.04 K/uL (0-0.2); EOS % 1.8 %; EOS ABS # 0.14 K/uL (0-0.5); HEMOGLOBIN 14.6 g/dL (14.0-18.0); IG# 0.01 K/uL (0.00-0.02); LYMPH % 22.3 %; MEAN CELL VOLUME 94.1 fL (80-100); MEAN CORPUSCULAR HEMOGLOBIN 31.9 pg (25-34); MEAN PLATELET VOLUME 11.5 fL (7.4-10.4); MONO % 18.1 %; MONO ABS # 1.38 K/uL (0.11-0.59); NEUT % 57.2 %; NEUT ABS # 4.36 K/uL (1.4-6.5); PLATELET COUNT 201 K/uL (130-400); RED CELL DISTRIBUTION WIDTH CV 15.2 % (11.5-14.5); RED CELL DISTRIBUTION WIDTH SD 52.1 fL (36.4-46.3); WHITE BLOOD COUNT 7.63 K/uL (4.8-10.8)
[2017-07-30 15:52] LABS: PTT PATIENT 25.2 SECONDS (21.0-31.0)
--- NOTE | 2017-07-31 19:23 | HISTORY & PHYSICAL EXAMINATION ---
DATE OF ADMISSION: 08/24/2017 CHIEF COMPLAINT: Left knee pain. HISTORY OF PRESENT ILLNESS: The patient is a 77-year-old male who complains of left knee pain. He has tried conservative therapy with minimal relief. He was previously seen by Dr. Jennings and Dr. White where he had cortisone injections and a knee scope. He would like to undergo a total knee replacement at this time. PAST MEDICAL HISTORY: Significant for a heart attack in 2010, hypertension, hypercholesterolemia, and COPD. PAST SURGICAL HISTORY: He had a CABG x3. He had 5 stent placements. History of prostate cancer, appendectomy, tonsillectomy, and splenectomy. SOCIAL HISTORY: He denies alcohol use, denies smoking or tobacco use, denies IV or illegal drug use. He lives in a 2-karri house and currently retired. FAMILY HISTORY: Noncontributory. ALLERGIES: AMIODARONE WHICH HE GETS A RASH, CIPRO WHICH HE GETS A RASH. MEDICATIONS: Finasteride, amlodipine, metoprolol, lisinopril, atorvastatin, aspirin, Caravite, and terazosin. REVIEW OF SYSTEMS: He denies headaches, fevers, chills, double vision, blurry vision, sore throat, cough, chest pain, nausea, vomiting, diarrhea, constipation, numbness, tingling, tiredness, urinary difficulties, thoughts to harm himself or harm others, or depression. He is positive for joint pain, joint stiffness of the left knee. PHYSICAL EXAMINATION: GENERAL APPEARANCE: The patient is a 77-year-old male, sitting, in no acute distress. He is well dressed, well nourished. He is awake, alert, and oriented x3. VITAL SIGNS: He is 5 feet 8 inches tall and 185 pounds. Blood pressure is 118/72. HEENT: Normocephalic and atraumatic. Extraocular movements are intact. Mucosa was moist. No septal deviation. NECK: Supple, with no lymphadenopathy, no JVD, no thyromegaly. CARDIOVASCULAR: Heart has regular rate and rhythm, with no murmurs or gallops. RESPIRATORY: Lungs are clear to auscultation. No wheezing or rhonchi. GASTROINTESTINAL: Abdomen is soft, nontender, nondistended. Normal bowel sounds. No hepatosplenomegaly. EXTREMITIES: On paying particular attention to the left lower extremity, he is able to actively extend to 0 degrees and flex to 100 degrees. He has medial joint line tenderness. Ligaments are intact. Strength is 4/5 in all directions. NEUROLOGIC: Cranial nerves II through XII were intact. Pulses were compared bilaterally and were equal. IMAGING: X-rays of the left knee demonstrated bone on bone in the medial compartment with subchondral sclerotic change, osteophyte formation of the medial femoral condyle and the medial tibial plateau. IMPRESSION: Primary osteoarthritis of the left knee. PLAN: The patient is scheduled for a left total knee arthroplasty. The patient has undergone conservative measures with minimal relief. He would like to proceed with scheduled surgery. Risks, benefits, and alternatives to surgery were discussed with the patient including but not limited to infection, DVT, pain, stiffness, need for revision surgeries, damage to blood vessels, damage to nerves, PE, , and anesthesia risks were all discussed with the patient. He understands these risks and he wishes to proceed. All questions were answered to his satisfaction. DVT prophylaxis will be aspirin 81 mg twice a day for 30 days. On discharge, he would like to go home with home health. SILVIA
[2017-08-24] VITALS (9 sets, daily range): BP systolic 124–169; BP diastolic 69–94; PULSE 54–59; TEMP 36.4–37; O2SAT 92–98
[~2017-08-24] VITALS: Ht 172.7 cm; Wt 88.5 kg
[~2017-08-24 07:25] MED LIST changes: +ACETAMINOPHEN 500 MG TAB PO SCH; +CEFAZOLIN 2000MG IV PUSH 15 ML IV SCH; +CeleBREX 200 MG CAP PO SCH; +DEXAMETHASONE 4 MG TAB PO SCH; +FAMOTIDINE 20 MG TAB PO SCH; +GABAPENTIN 300 MG CAP PO SCH; +LACTATED RINGER'S 1000ML 1,000 ML IV SCH; +METOCLOPRAMIDE HCL 10 MG TAB PO SCH; +OXYCODONE HCL 10 MG TABCR (OXYCONTIN) PO SCH; +ROPIVACAINE 5MG/ML 30 ML 150 MG, BUPIVACAINE 0.5% MPF INJ 30 ML, EpINEphrine HCL INJ 0.... INFIL SCH
[2017-08-24] MEDS ORDERED: ROPIVACAINE 0.5% 5 MG/ML 30 ML VIAL ONE (07:54)
[2017-08-24] MEDS ORDERED: BUPIVACAINE 0.5 % 5 MG/1 ML PF 10ML VIAL ONE (07:54)
[2017-08-24] MEDS ORDERED: MIDAZOLAM HCL 1 MG/ML 2ML VIAL ONE ×2 (07:55)
[2017-08-24] MEDS ORDERED: FENTANYL CITRATE INJ 50 MCG/1 ML 2 ML VIAL ONE (07:55)
--- NOTE | 2017-08-24 08:24 | History & Physical Bridge Note ---
H&P Re-Evaluation Bridge Note: I have examined the patient, reviewed the History & Physical and in the interval since the performance of the History & Physical I have noted the following changes of clinical significance: No changes noted
[2017-08-24] MEDS ORDERED: BACITRACIN 50000 UNIT VIAL ONE (08:58)
[2017-08-24] MEDS ORDERED: POVIDONE-IODINE OP SOLN 30 ML BTL ONE (08:58)
[2017-08-24] MEDS ORDERED: ORTHO JOINT ANESTHETIC ONE (08:58)
[2017-08-24] MEDS: TRANEXAMIC ACID INJ 1,000 MG x 2 Bags IV SCH ×4 (09:30→13:42)
[2017-08-24] MEDS ORDERED: ONDANSETRON INJ 2 MG/ML 2 ML VIAL IV PRN ×2 (10:45→11:45)
[2017-08-24] MEDS ORDERED: EpHEDrine SULFATE INJ 50 MG/ML AMP IV PRN (10:45)
[2017-08-24] MEDS ORDERED: ATROPINE SULFATE 0.1 MG/ML 5ML SYR IV PRN (10:45)
[2017-08-24] MEDS ORDERED: LABETALOL HCL IV 5 MG/ML 20ML IV PRN (10:45)
[2017-08-24] MEDS ORDERED: FENTANYL CITRATE INJ 50 MCG/1 ML 2 ML VIAL IV PRN (10:45)
[2017-08-24] MEDS ORDERED: MEPERIDINE HCL 25 MG/ML CARP IV PRN (10:45)
[2017-08-24] MEDS ORDERED: HYDROmorphone INJ 0.5 MG/0.5 ML SYR IV PRN (10:45)
--- NOTE | 2017-08-24 11:11 | [facility] Operative Report ---
Operative Report Operative Date August 24, 2017. Pre-Operative Diagnosis Primary Osteoarthritis Left Knee Post-Operative Diagnosis Primary Osteoarthritis Left Knee Procedure(s) Performed Left Total Knee Arthroplasty Surgeon Dr. Torres Continuous Improvement Specialist Surgeon(s) KODY Andre/ KODY Aly Estimated Blood Loss 20 ml Fluids As above Specimens A. Left Knee Bone and Tissue Drains 2 Hemovac Anesthesia Type MAC Spinal Regional Complication(s) none Disposition Recovery Room / PACU Indications The patient is a 77-year-old male long-standing arthritis left knee. He is bone -on-bone medial compartment. He has failed conservative measures including cortisone injection anti-inflammatories and rehab. He wishes to proceed with a left total knee arthroplasty. Description of Procedure Risks benefits and alternatives of surgery including but not limited to infection, DVT, pain, stiffness, need for surgery, damage to blood vessels, damage to nerves or risks of anesthesia were discussed with the patient and they wished to proceed. The patient was identified and the laterality was confirmed and marked. They received a preoperative antibiotic as well as a spinal anesthetic and an abductor canal block. A well-padded tourniquet was applied and then the limb was prepped and draped in standard manner with ChloraPrep. The limb was exsanguinated and the tourniquet was inflated. I made a standard anterior incision. I sharply incised the skin then utilized Bovie electrocautery as well as the aqua mantis to achieve hemostasis. I made a medial parapatellar arthrotomy and mobilized the patella laterally. I then excised the anterior horns of the medial and lateral meniscus as well as the infrapatellar fat pad. I elevated a portion of the MCL off of the tibia. I then pinned into place a patient-matched distal femoral cutting guide and made my distal femoral resection. I then pinned into place the 5 in 1 femoral cutting guide. I made my anterior, posterior and chamfer cuts. I then excised the cruciates and the remaining portions of the menisci. I then pinned into place a patient- matched tibial cutting guide and made my tibial resection. I then pinned into place the tibial plate a utilizing alignment amy to confirm rotation. I then cut for the post. Utilizing a lamina family practice physician and I then removed posterior osteophytes off the femur. I then placed a trial femur into position and cut for the trochlear component. I then sequentially trialed to size the polyethylene until there was good soft tissue balancing and range of motion. I then prepared the patella with a freehand cut utilizing sagittal saw. I sized and drilled for the patella. There was some lateral tracking to the patella. A small lateral release was required. After this is performed he had good tracking with a no hands technique. All the trial components were removed. The deep tissues were anesthetized with an ortho mix solution. Then with Simplex HV with gentamicin cement, I cemented my definitive components. Definitive components, Wu and Nephew Felicianoney 2: Femur 7 Tibia 6 Poly 9 Patella 38 oval A betadine soak was performed. A deep drain was placed. The arthrotomy was closed with interrupted #1 Vicryl suture subcutaneous tissue was closed with interrupted 2-0 Vicryl suture. The skin was closed with with rayna. A Silverlon was placed. Sterile dressings were applied. All needle and sponge counts were correct at the end of the procedure patient was transferred to the PACU in stable condition without apparent complication. The PA-C was necessary for assistance with procedure for assistance in positioning, prepping, draping, retraction and closure. I attest to the content of the Intraoperative Record and any orders documented therein. Any exceptions are noted below.
[2017-08-24] MEDS ORDERED: ALUMINUM/MAGNESIUM/SIMETH (MAALOX MAX) 30 ML UDC PO PRN (11:45)
[2017-08-24] MEDS ORDERED: MAGNESIUM HYDROXIDE SUSP 30 ML UDC PO PRN (11:45)
[2017-08-24] MEDS ORDERED: OXYCODONE HCL IR 5 MG TAB (IMMEDIATE RELEASE) PO PRN (11:45)
[2017-08-24] MEDS ORDERED: TRAMADOL HCL 50 MG TAB PO PRN (11:45)
[2017-08-24] MEDS ORDERED: TAMSULOSIN HCL 0.4 MG CAP PO PRN (11:45)
[2017-08-24] MEDS ORDERED: BISACODYL 10 MG SUPP PR PRN (11:45)
[2017-08-24] MEDS ORDERED: MoRPHine SULFATE 4 MG/ML 1 ML CARP\\VIAL IV PRN (11:45)
[2017-08-24] MEDS ORDERED: CEFAZOLIN IV 2,000 MG in DEXTROSE 5% 50ML 50 ML IV SCH (11:45)
--- NOTE | 2017-08-24 12:08 | DIAGNOSTIC IMAGING REPORT ---
L KNEE 1 OR 2 VIEWS ROUTINE CLINICAL HISTORY: AP/LATERAL IN PACU LEFT KNEE COMPARISON: None. DISCUSSION: Anatomic alignment posttotal left knee arthroplasty. Good contact between prosthetic and underlying bone. Expected soft tissue postoperative change. Surgical drains are in position. IMPRESSION: Anatomic alignment posttotal left knee arthroplasty. The above report was generated using voice recognition software. It may contain grammatical, syntax or spelling errors. Electronically signed by: Jorge Alberto Wilson M.D. 08/24/2017 12:06 PM Dictated Date/Time: 08/24/2017 12:06 PM
--- NOTE | 2017-08-24 12:50 | Anesthesiology Progress Note ---
Anesthesia Post Op Note Date & Time August 24, 2017 at 12:50 Vital Signs Pain Intensity: 0 Vital Signs Past 12 Hours Date Time Temp Pulse Resp B/P (MAP) Pulse Ox O2 Delivery O2 Flow Rate FiO2 08/24/17 12:23 55 21 96 08/24/17 12:20 36.6 08/24/17 12:03 56 21 08/24/17 12:03 55 21 96 08/24/17 12:01 107/64 08/24/17 11:58 59 17 97 08/24/17 11:58 57 17 08/24/17 11:56 111/65 08/24/17 11:53 57 17 96 08/24/17 11:53 57 17 08/24/17 11:50 111/63 08/24/17 11:48 57 21 97 08/24/17 11:48 57 21 08/24/17 11:46 114/62 08/24/17 11:44 106/61 08/24/17 11:43 61 08/24/17 11:43 36.8 57 12 106/61 97 Nasal Cannula 2 08/24/17 11:43 61 94 08/24/17 07:49 37 58 18 143/94 98 Room Air Notes Mental Status: alert / awake / arousable, participated in evaluation Pt Amnestic to Procedure: Yes Nausea / Vomiting: adequately controlled Pain: adequately controlled Airway Patency, RR, SpO2: stable & adequate BP & HR: stable & adequate Hydration State: stable & adequate Anesthetic Complications: no major complications apparent
[2017-08-24] MEDS: FERROUS GLUCONATE 324 MG TAB PO SCH ×2 (13:42→17:47)
[2017-08-24] MEDS: D5W AND 1/2NSS + 20MEQ KCL 1,000 ML IV SCH (13:42)
[2017-08-24] MEDS: CEFAZOLIN IV 2,000 MG in SYRINGE 0 ML IV SCH (17:48)
[2017-08-24] MEDS ORDERED: FINASTERIDE 5 MG TAB PO SCH (21:00)
[2017-08-24] MEDS ORDERED: SENNA 8.6 MG TAB PO SCH (21:00)
[2017-08-24] MEDS ORDERED: TAMSULOSIN HCL 0.4 MG CAP PO SCH (21:00)
[2017-08-24] MEDS: ASPIRIN 81 MG ECTAB PO SCH (21:49)
[2017-08-24] MEDS: METOPROLOL TARTRATE 25 MG TAB PO SCH (21:51)
[2017-08-24] MEDS: DOCUSATE SODIUM 100 MG CAP PO SCH (21:52)
[2017-08-24] MEDS: ACETAMINOPHEN 500 MG TAB PO SCH (21:53)
[2017-08-25] MEDS: D5W AND 1/2NSS + 20MEQ KCL 1,000 ML IV SCH ×2 (00:03→10:00)
[2017-08-25] MEDS: CEFAZOLIN IV 2,000 MG in SYRINGE 0 ML IV SCH (01:27)
[2017-08-25 03:52] VITALS: BP 166/83; PULSE 60; TEMP 36.5; O2SAT 93
[2017-08-25] MEDS: ACETAMINOPHEN 500 MG TAB PO SCH (05:37)
[2017-08-25 06:29] LABS: HEMATOCRIT 39.8 % (42-52); HEMOGLOBIN 13.6 g/dL (14.0-18.0); MEAN CELL VOLUME 92.1 fL (80-100); MEAN CORPUSCULAR HEMOGLOBIN 31.5 pg (25-34); MEAN CORPUSCULAR HGB CONC 34.2 g/dl (32-36); MEAN PLATELET VOLUME 11.6 fL (7.4-10.4); PLATELET COUNT 179 K/uL (130-400); RED CELL DISTRIBUTION WIDTH CV 15.1 % (11.5-14.5); RED CELL DISTRIBUTION WIDTH SD 51.5 fL (36.4-46.3); WHITE BLOOD COUNT 16.52 K/uL (4.8-10.8)
[2017-08-25 06:50] LABS: CALCIUM 8.8 mg/dl (8.5-10.1); CREATININE 1.52 mg/dl (0.60-1.40); POTASSIUM 4.6 mmol/L (3.5-5.1)
[2017-08-25 07:40] VITALS: BP 159/81; PULSE 65; TEMP 36.6; O2SAT 95
[2017-08-25] MEDS: FERROUS GLUCONATE 324 MG TAB PO SCH (08:57)
[2017-08-25] MEDS: ASPIRIN 81 MG ECTAB PO SCH (09:00)
[2017-08-25] MEDS ORDERED: LISINOPRIL 40 MG TAB PO SCH (09:00)
[2017-08-25] MEDS: DOCUSATE SODIUM 100 MG CAP PO SCH (09:00)
[2017-08-25] MEDS ORDERED: AMLODIPINE BESYLATE 5 MG TAB PO SCH (09:00)
[2017-08-25] MEDS ORDERED: MULTIVITAMIN TAB PO SCH (09:00)
[2017-08-25] MEDS: METOPROLOL TARTRATE 25 MG TAB PO SCH (09:00)
[2017-08-25 09:45] VITALS: BP 148/78; PULSE 78; O2SAT 97
--- NOTE | 2017-08-25 09:54 | Orthopedic Progress Note ---
Orthopedic Progress Note Date of Service August 25, 2017. Subjective Post OP Day: 1 Reports: feeling well Objective N/V intact, dressing C/D/I (Hemovac in place), toes mobile Date Time Temp Pulse Resp B/P (MAP) Pulse Ox O2 Delivery O2 Flow Rate FiO2 08/25/17 07:40 36.6 65 16 159/81 (107) 95 Room Air 08/25/17 07:15 Room Air 08/25/17 03:52 36.5 60 16 166/83 (110) 93 Room Air 08/25/17 00:00 Room Air 08/24/17 23:25 55 152/83 (106) 08/24/17 22:51 36.4 59 18 169/92 (117) 92 Room Air 08/24/17 22:14 56 143/87 (105) 08/24/17 19:37 36.5 58 18 145/76 (99) 94 Room Air 08/24/17 15:47 36.5 57 18 125/74 (91) 98 Nasal Cannula 2.0 08/24/17 15:30 Nasal Cannula 2.0 08/24/17 14:37 36.7 57 18 135/76 (95) 97 Nasal Cannula 2.0 08/24/17 13:31 36.6 55 17 124/76 (92) 96 Nasal Cannula 2.0 08/24/17 12:35 36.6 54 16 130/69 (89) 96 Nasal Cannula 2.0 08/24/17 12:35 96 Nasal Cannula 2.0 08/24/17 12:35 96 Nasal Cannula 2.0 08/24/17 12:23 55 21 96 08/24/17 12:20 36.6 08/24/17 12:03 56 21 08/24/17 12:03 55 21 96 08/24/17 12:01 107/64 08/24/17 11:58 59 17 97 08/24/17 11:58 57 17 08/24/17 11:56 111/65 08/24/17 11:53 57 17 96 08/24/17 11:53 57 17 08/24/17 11:50 111/63 08/24/17 11:48 57 21 97 08/24/17 11:48 57 21 08/24/17 11:46 114/62 08/24/17 11:44 106/61 08/24/17 11:43 61 08/24/17 11:43 36.8 57 12 106/61 97 Nasal Cannula 2 08/24/17 11:43 61 94 Laboratory Results 24 Hours: Test 08/25/17 05:54 Hematocrit 39.8 % Hemoglobin 13.6 g/dL Assessment & Plan Assessment: 77 yo male stable POD #1 s/p left TKA Plan: 1. Med management 2. DVT prophylaxis- ASA, SCDs 3. PT/OT 4. D/C planning- home w/ HH
[2017-08-25] MEDS ORDERED: ACET-24 PO (09:56)
[2017-08-25] MEDS ORDERED: RXC5 PO (09:56)
[2017-08-25] MEDS ORDERED: ASPI-320 PO (09:56)
[2017-08-25] MEDS ORDERED: ULT50X PO (09:56)
--- NOTE | 2017-08-25 10:02 | Discharge Instructions ---
Discharge Instructions Date of Service August 25, 2017. Admission Reason for Admission: Left Knee Osteoarthritis Discharge Discharge Diagnosis / Problem: Left knee arthritis Discharge Goals Goal(s): Decrease discomfort, Improve function Activity Recommendations Activity Limitations: as noted below Weightbearing Status: Left weightbearing (as tolerated) . Instructions / Follow-Up Instructions / Follow-Up ACTIVITY RECOMMENDATIONS: SELF CARE INSTRUCTIONS AFTER TOTAL KNEE REPLACEMENT A. You may need to continue a physical therapy program after discharge from the hospital. There are several options available to you. Your doctor will assist you in selecting the best one for you. 1. An out-patient facility 2 to 3 times a week for therapy or home therapy. 2. Continue working on all exercises taught to you in the hospital. Your goals should be to increase bending of your knee to 90 degrees and beyond and to fully straighten your knee. B. You may progress at your own pace from walking with a walker or crutches to a cane; then to no assistive devices. C. Make walking a part of your daily routine. Be up as much as comfortable with rest periods throughout the day. Rest with leg elevation is very important. Use the ice wrap frequently for the first 3-4 weeks. D. There are no restrictions on activities. You may ride in a car, shop, participate in histology aide and all social activities. E. Wear the long elastic stockings (SEMAJ hose) 20 hours a day for 2 weeks after surgery. They can be removed several times a day for laundering and for a bath. F. You may shower, no tub baths until cleared by your doctor. SPECIAL CARE INSTRUCTIONS: VERY IMPORTANT TO READ AND REVIEW A. There are a few signs you need to watch for after you are home. Call [facility] if you notice any of the followin. Increased severe knee pain. Some pain is expected especially when you exercise. 2. Increased swelling in your leg or knee; pain or swelling of the calf muscle in either lower leg. 3. Any fluid drainage from the incision. 4. Shortness of breath or chest pain. B. Please call [facility] at if you have any concerns or questions about your operation or recovery. The doctor or his nurse will return your call promptly. C. You must take antibiotics before dental work, bladder, bowel or other surgery. Your doctor will provide you with a permanent care to carry describing this precaution. IMPORTANT: * REMEMBER TO TAKE ASPIRIN, 81 MG, TWICE DAILY FOR 4 WEEKS UNLESS OTHERWISE DIRECTED. THIS IS YOUR BLOOD THINNER. * HIGH RISK PATIENTS MAY BE PRESCRIBED A STRONGER BLOOD THINNER. THIS WILL BE PROVIDED AT DISCHARGE. * CALL IF INCREASED PAIN, REDNESS, DRAINAGE OR FEVER GREATER THAT 101. * WEAR SEMAJ HOSE 20 HOURS PER DAY FOR 2 WEEKS. * YOU MAY HAVE A LARGE BAND-AID LIKE DRESSING (SILVERON). THIS WILL REMAIN ON YOUR INCISION FOR 7 DAYS, THEN CAN BE REMOVED. IF INCISION IS LEAKING THROUGH DRESSING, CALL THE OFFICE . * HOME NURSING TO REMOVE DRESSING AND DRAIN 08/26. YOU MAY SHOWER ONCE DRESSING /DRAIN IS REMOVED. FOLLOW UP VISIT: If appointment is not already scheduled: Please call [facility] to make a follow-up appointment for 2 weeks after your surgery at . Current Hospital Diet Patient's current hospital diet: AHA Diet (Heart Healthy) Discharge Diet Recommended Diet: AHA Diet (Heart Healthy) Procedures Procedures Performed: Left Total Knee Arthroplasty Pending Studies Studies pending at discharge: no Laboratory Results Hemoglobin A1c Test 07/30/17 14:55 Range/Units Estimated Average Glucose 126 mg/dl Hemoglobin A1c 6.0 H 4.5-5.6 % Medical Emergencies . Who to Call and When: Medical Emergencies: If at any time you feel your situation is an emergency, please call 911 immediately. . Non-Emergent Contact Non-Emergency issues call your: Surgeon Call Non-Emergent contact if: temperature is above 101.5, your pain is not controlled, wound has increased drainage, wound has increased redness . "Provider Documentation" section prepared by Lizandro Lemus PA-C. . [place] Drug Monitoring Program Search Results: patient reviewed within database, no issues identified
[2017-08-25 11:04] VITALS: BP 148/78; PULSE 78; TEMP 36.6; O2SAT 97
[2017-08-25] MEDS ORDERED: ATORVASTATIN 40 MG TAB PO SCH (21:00)
--- NOTE | 2017-08-28 18:24 | DISCHARGE SUMMARY ---
DISCHARGE DIAGNOSIS: Degenerative joint disease, left knee. SECONDARY DIAGNOSES: History of coronary artery disease with myocardial infarction in 2010, hypertension, hypercholesterolemia, chronic obstructive pulmonary disease. CONSULTS: None. COMPLICATIONS: None. PROCEDURES: Left total knee arthroplasty performed by Dr. Torres on 08/24/2017. BRIEF HISTORY: As dictated in the history of present illness. HOSPITAL SUMMARY: The patient was admitted on the above noted date and had the above noted surgery performed which he tolerated well. On the first postoperative day, he was feeling well. Neurovascular was intact. Dressings clean, dry, and intact. Toes are mobile. Vital signs were stable, and he was afebrile. Hemoglobin was 13.6, and he was started on Do protocol and continued on DVT prophylaxis and pain management. In physical therapy, he had 102 degrees flexion of the knee and was ambulating 500 feet, and he ascended and descended an 8 inch step with rail. He was progressing well with his physical therapy and was felt to be stable and could be discharged to home with home health services. For further review, please see chart. LABORATORY AND X-RAY DATA: As per chart. DISCHARGE INSTRUCTIONS: The patient was discharged home in satisfactory condition on 08/25/2017. Diet: Heart healthy. Activity: Weightbearing as tolerated, left lower extremity. Follow TK instruction sheets and special care instructions as noted. Follow up with Dr. Torres in 2 weeks. The patient to call for appointment if one has not been made for you. DISCHARGE MEDICATIONS: Acetaminophen 1000 mg p.o. q.8 h. for 14 days, aspirin 81 mg p.o. b.i.d., oxycodone 5-10 mg p.o. q.4 h. p.r.n., tramadol 50-100 mg p.o. q.4 h. p.r.n. Resume home medications as listed, and once you are done taking the aspirin twice daily for 30 days, resume once daily dosing.
== END 2017-08-25 11:53 | disposition home health service (06) | DRG 470 ==
LOC: C.ACU 07:25 → C.3E 07:27 → ENRESERV 12:12
PROVIDERS: ADMIT Orthopaedic Surgery; ATTEND Orthopaedic Surgery
PROC: 0SRD0J9 Replacement of Left Knee Joint with Synthetic Substitute, Cemented, Open Approach (ICD-10-PCS; principal; 2017-08-24 10:30)
DX: M17.12 Unilateral primary osteoarthritis, left knee (principal); I10 Essential (primary) hypertension; E78.00 Pure hypercholesterolemia, unspecified; J44.9 Chronic obstructive pulmonary disease, unspecified; I25.2 Old myocardial infarction; Z79.82 Long term (current) use of aspirin; Z79.899 Other long term (current) drug therapy; Z95.1 Presence of aortocoronary bypass graft

== ENCOUNTER 2018-09-23 05:45 | Inpatient (IN) ==
--- NOTE | 2018-09-05 15:55 | PAT Medication Instructions ---
Medication Instructions Date of Service September 05, 2018 Home Medications amlodipine 5 mg PO QAM aspirin 81 mg PO QAM atorvastatin 40 mg PO PM finasteride 5 mg PO HS lisinopril 40 mg PO QAM metoprolol tartrate 25 mg PO BID multivitamin 1 tab PO QAM oxycodone 5 mg PO TID tamsulosin 0.4 mg PO QPM tramadol 50 - 100 mg PO TID PRN ASK your surgeon for instructions aspirin 81 mg PO QAM DO NOT take the morning of surgery lisinopril 40 mg PO QAM multivitamin 1 tab PO QAM Take morning of surgery With a small sip of water, OTHERWISE NOTHING TO EAT OR DRINK AFTER MIDNIGHT: amlodipine 5 mg PO QAM metoprolol tartrate 25 mg PO BID oxycodone 5 mg PO TID (okay to take up to 4 hours prior to surgery if needed) tramadol 50 - 100 mg PO TID PRN (okay to take up to 4 hours prior to surgery if needed) Take evening before surgery atorvastatin 40 mg PO PM finasteride 5 mg PO HS metoprolol tartrate 25 mg PO BID oxycodone 5 mg PO TID tamsulosin 0.4 mg PO QPM tramadol 50 - 100 mg PO TID PRN (if needed) Other Notes If you have any questions please call us at [phone] or [phone] or [phone] or [phone]
--- NOTE | 2018-09-10 13:14 | Anesthesiology Consultation ---
Date of Service September 10, 2018 Assessment & Plan (1) Encounter for pre-operative examination: - Cardio: 09/10/18: ECHO done 09/03/18. "patient is at an acceptable risk to proceed with upcoming surgery without any additional cardiovascular testing or intervention. Recommend he remain on low dose aspirin therapy throughout the perioperative period given his history of PCI." Surgeon made aware of cardio ASA recommendations. - PCP: 09/11/18: "medically cleared for surgery." Chart Review Chart Review: Acceptable Risk for Surgery and Patient seen in Pre Admission Testing Teaching & Discussion Pre-Anesthesia Teaching/Discussion Notes: Instructed NPO after midnight before surgery,except medications with 15 cc of water. Medication instructions provided according to the PAT guidelines. History Surgery Operation Date: 09/23/18 07:45 Proposed Procedures p C5 Corpectomy, C4-C6 Fusion, Spinal Cord Monitoring - Garrett Aj, Height/Weight Height: 5 ft 7 in Weight: 88 kg Allergies Allergy/AdvReac Type Severity Reaction Status Date / Time amiodarone Allergy Unknown rash Verified 09/03/18 11:45 Cipro Allergy Unknown rash Verified 08/24/17 07:42 ciprofloxacin Allergy Unknown rash Verified 09/03/18 11:45 Medications Home Medications Medication Instructions Recorded Confirmed Last Taken amlodipine 5 mg PO QAM 09/03/18 09/03/18 Unknown aspirin 81 mg PO QAM 09/03/18 09/03/18 Unknown atorvastatin 40 mg PO PM 09/03/18 09/03/18 Unknown finasteride 5 mg PO HS 09/03/18 09/03/18 Unknown lisinopril 40 mg PO QAM 09/03/18 09/03/18 Unknown metoprolol tartrate 25 mg PO BID 09/03/18 09/03/18 Unknown multivitamin 1 tab PO QAM 09/03/18 09/03/18 Unknown oxycodone 5 mg PO TID 09/03/18 09/03/18 Unknown tamsulosin 0.4 mg PO QPM 09/03/18 09/03/18 Unknown tramadol 50 - 100 mg PO TID PRN 09/03/18 09/03/18 Unknown Past Medical History Medical History Coronary artery disease S/P CABG X3 (2010), STENTS X5 (2002) BPH (benign prostatic hyperplasia) CKD (chronic kidney disease) BASELINE CREATININE 1.3-1.6 RANGE PER CHART REVIEW Chronic obstructive pulmonary disease STABLE Degenerative disc disease 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 History of prostate cancer UNDER SURVEILLANCE; DX 2012 Hyperlipidemia Hypertension Myocardial Infarction Obesity Osteoarthritis Exercise / Class Metabolic Activity III < 4 Walking/Shop/Light housework Past Surgical History Surgical History Fusion of spine LUMBAR X2 History of appendectomy History of cardiac cath STENTS X5 (2002) History of cholecystectomy History of colonoscopy History of coronary artery bypass graft CABG X3 (2010) History of herniorrhaphy 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 No known hx reintubation. Social History Smoking Status: Former smoker tobacco type: cigars Smoking cigarettes per day: HX 3 CIGARS/DAY; QUIT 2010 Do You Dip or Chew Tobacco: No Hx Alcohol Use: No Alcohol Intake Frequency Comment: 0 Hx Substance Use: No substance use type: does not use Review of Systems Patient denies chest pain, shortness of breath, reflux, cough, wheezing, palpitations. Physical Exam Vital Signs VITALS BP 166/78 P 60 TEMP 98.4 SP02 93%RA RESP 20 PHYSICAL Decreased cervical extension 2/2 cervicalgia Full TMJ range of motion. TMD 4 finger breaths Mallampati Score 3 Dentition: full dentures upper/lower; edentulous Lungs: clear throughout to auscultation Cardiac: regular rate and rhythm, no murmurs noted Spine: normal Carotid arteries: negative bruit Extremities: no edema Testing Laboratory Results 09/10/18 13:40 09/10/18 09/10/18 09/10/18 13:40 13:40 Unknown PT 10.6 INR 1.0 APTT 24.8 Urine Color Dark Yellow Urine Appearance Clear Urine pH 5.0 Ur Specific [place] 1.024 Urine Protein Negative Urine Glucose (UA) Negative Urine Ketones Negative Urine Nitrite Negative Ur Leukocyte Esterase Negative Blood Type B Positive Antibody Screen NEGATIVE 08/27/18 SODIUM 140 POTASSIUM 4.6 CHLORIDE 107 CO2 30 BUN 34 CREATININE 1.55 GLUCOSE 91 Electrocardiogram Date: 07/09/18 SR at 71bpm. Possible LAE. Chest X-Ray Date: 09/10/18 Findings: + NAD Chronic basilar interstitial change. Mild stable cardiomegaly. Prior median sternotomy. Echocardiogram Date: 09/03/18 EF 55-60%. No RWMA. Sclerotic AV. Mild TR. Grade I DD. No significant changes compared to 07/2017 per study. Stress Test Date: 08/03/17 Type: DSE No ischemic changes noted on DSE at 80% MPHR. Cannot rule out ischemic changes at faster heart rates. Nondiagnostic stress EKG as target heart rate was not attained. No arrhythmia. No chest pain. EF 60-65%. No RWMA. Type I DD. Mild MR.
[2018-09-10 14:09] LABS: Basophils # (auto) 0.04 K/uL (0-0.2); Basophils % (auto) 0.6 %; Eosinophils # (auto) 0.22 K/uL (0-0.5); Eosinophils % (auto) 3.3 %; Hematocrit (blood only) 43.4 % (42-52); Hemoglobin 15.1 g/dL (14.0-18.0); Immature Granulocytes # (auto) 0.02 K/uL (0.00-0.02); Immature Granulocytes % (auto) 0.3 %; Lymphocytes # (auto) 1.63 K/uL (1.2-3.4); Lymphocytes % (auto) 24.1 %; Mean Corpuscular Hgb Conc 34.8 g/dL (32-36); Mean Corpuscular Volume 91.4 fL (80-100); Mean Platelet Volume 12.1 fL (7.4-10.4); Monocytes # (auto) 1.15 K/uL (0.11-0.59); Neutrophils # (auto) 3.69 K/uL (1.4-6.5); Neutrophils % (auto) 54.7 %; Platelet Count 186 K/uL (130-400); RDW Coefficient of Variation 17.3 % (11.5-14.5); RDW Standard Deviation 58.9 fL (36.4-46.3); Red Blood Count 4.75 M/uL (4.7-6.1); White Blood Count 6.75 K/uL (4.8-10.8)
--- NOTE | 2018-09-10 14:12 | XRay Report ---
XR chest Pre-admission PA/Lat CLINICAL HISTORY: pat preoperative evaluation COMPARISON STUDY: 02/12/2017 FINDINGS: Chronic basilar interstitial change. Mild stable cardiomegaly. Prior median sternotomy. No acute process. IMPRESSION: Chronic and postoperative change. No acute process. The above report was generated using voice recognition software. It may contain grammatical, syntax or spelling errors. Electronically signed by: Jorge Alberto Wilson M.D. 09/10/2018 2:10 PM
[2018-09-10 14:16] LABS: Partial Thromboplastin Ratio 0.9; Partial Thromboplastin Time 24.8 Seconds (21.0-31.0); Prothrombin Time 10.6 Seconds (9.0-12.0)
[2018-09-10 14:20] LABS: Appearance Urine Clear (Clear); Bilirubin Urine Negative (Negative); Blood Urine Negative (Negative); Color Urine Dark Yellow; Glucose Urine UA Negative (Negative); Ketones Urine Negative (Negative); Leukocyte Esterase Urine Negative (Negative); Nitrite Urine Negative (Negative); Protein Urine Negative (Negative); Specific Gravity Urine 1.024 (1.000-1.030); Urobilinogen Urine Negative (Negative)
[2018-09-23] MEDS ORDERED: LR 15ML/HR IV SCH (06:00)
[2018-09-23] MEDS ORDERED: CeleBREX 200 MG CAP PO SCH (06:00)
[2018-09-23] MEDS ORDERED: GABAPENTIN 300 MG PO SCH (06:00)
[2018-09-23] MEDS ORDERED: ACETAMINOPHEN 500 MG TAB PO SCH (06:00)
[2018-09-23] MEDS ORDERED: CEFAZOLIN 2000MG 2,000 MG/15 ML SYR IV SCH (06:00)
[2018-09-23] MEDS ORDERED: fentaNYL citrate 100 MCG/2 ML VIAL ONE ×4 (06:43→09:42)
[2018-09-23] MEDS ORDERED: HYDROmorphone INJ 2 MG/ML SYR/VIAL ONE (06:43)
[2018-09-23] MEDS ORDERED: ONDANSETRON INJ 2 MG/ML 2 ML VIAL ONE (06:44)
[2018-09-23] MEDS ORDERED: LIDOCAINE HCL 2% 2 ML VIAL/AMP(20MG/ML) INFIL ONE (06:44)
[2018-09-23] MEDS ORDERED: NEOSTIGMINE METHYLSULFATE 1 MG/ML 10ML VIAL ONE (06:44)
[2018-09-23] MEDS ORDERED: DEXAMETHASONE SOD INJ 4 MG/ML VIAL ONE (06:44)
[2018-09-23] MEDS ORDERED: GLYCOPYRROLATE 0.2 MG/ML VIAL ONE ×2 (06:44→09:27)
[2018-09-23] MEDS ORDERED: PROPOFOL IV EMULSION 10 MG/ML 20 ML VIAL IV ONE (06:44)
[2018-09-23] MEDS ORDERED: ROCURONIUM BROMIDE 10 MG/ML 5 ML VIAL ONE (06:44)
[2018-09-23] MEDS ORDERED: BACITRACIN INJ 50,000 UNIT VIAL ONE (07:01)
[2018-09-23] MEDS ORDERED: ePHEDrine sulfate 50 MG/ML AMP IV PRN (07:16)
[2018-09-23] MEDS ORDERED: LABETALOL HCL IV 5 MG/ML 20ML IV PRN (07:16)
[2018-09-23] MEDS ORDERED: fentaNYL citrate 100 MCG/2 ML VIAL IV PRN (07:16)
[2018-09-23] MEDS ORDERED: HYDROmorphone INJ 1 MG/ML SYRINGE IV PRN (07:16)
[2018-09-23] MEDS ORDERED: ONDANSETRON INJ 2 MG/ML 2 ML VIAL IV PRN ×2 (07:16→11:17)
[2018-09-23] MEDS ORDERED: PHENYLEPHRINE 100MCG/ML 5ML SYR IV PRN (07:16)
[2018-09-23] MEDS ORDERED: ATROPINE SULFATE 0.1 MG/ML 10ML SYR IV PRN (07:16)
[2018-09-23] MEDS ORDERED: MEPERIDINE HCL 25 MG/ML CARP IV PRN (07:16)
[2018-09-23] MEDS ORDERED: PROPOFOL IV EMULSION 10 MG/ML 100 ML VIAL IV ONE (07:19)
--- NOTE | 2018-09-23 07:28 | History & Physical Bridge Note ---
Date of Service September 23, 2018 History & Physical Bridge Note I have examined the patient, reviewed the History & Physical and in the interval since the performance of the History & Physical I have noted the following changes of clinical significance: no changes noted
--- NOTE | 2018-09-23 07:30 | History & Physical Report ---
Date of Service September 23, 2018 Assessment & Plan (1) Cervical stenosis of spinal canal: C5 corpectomy C4-C6 fusion Present on Admission?: Yes History of Present Illness Chief Complaint: Neck and arm pain Primary Care Provider: Gabbi Greenberg MD This is a 78-year-old male who presents with chronic persistent neck and arm pain. After failing extensive course of nonoperative care is here for surgical intervention. Allergies Allergy/AdvReac Type Severity Reaction Status Date / Time amiodarone Allergy Unknown rash Verified 09/23/18 06:09 Cipro Allergy Unknown rash Verified 08/24/17 07:42 ciprofloxacin Allergy Unknown rash Verified 09/23/18 06:09 Home Medications Home Medications Medication Instructions Recorded Confirmed Type amlodipine 5 mg PO QAM 09/03/18 09/23/18 History aspirin 81 mg PO QAM 09/03/18 09/23/18 History atorvastatin 40 mg PO PM 09/03/18 09/23/18 History finasteride 5 mg PO HS 09/03/18 09/23/18 History lisinopril 40 mg PO QAM 09/03/18 09/23/18 History metoprolol tartrate 25 mg PO BID 09/03/18 09/23/18 History multivitamin 1 tab PO QAM 09/03/18 09/23/18 History oxycodone 5 mg PO TID 09/03/18 09/23/18 History tamsulosin 0.4 mg PO QPM 09/03/18 09/23/18 History tramadol 50 - 100 mg PO TID PRN 09/03/18 09/23/18 History Past Med/Surg History Medical History Coronary artery disease S/P CABG X3 (2010), STENTS X5 (2002) BPH (benign prostatic hyperplasia) CKD (chronic kidney disease) BASELINE CREATININE 1.3-1.6 RANGE PER CHART REVIEW Chronic obstructive pulmonary disease STABLE Degenerative disc disease 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 History of prostate cancer UNDER SURVEILLANCE; DX 2012 Hyperlipidemia Hypertension Myocardial Infarction Obesity Osteoarthritis Surgical History Fusion of spine LUMBAR X2 History of appendectomy History of cardiac cath STENTS X5 (2002) History of cholecystectomy History of colonoscopy History of coronary artery bypass graft CABG X3 (2010) History of herniorrhaphy 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 History of tonsillectomy History of total knee replacement LEFT Social History Preferred Language: Belarusian Communication Ability: Effective 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 Results & Data Vital Signs (Past 12 Hours) Vital Signs Temp Pulse Resp BP Pulse Ox 09/23/18 06:10 36.9 C 54 L 16 174/103 H 97
[2018-09-23] MEDS ORDERED: FLOSEAL HEMOSTATIC MATRIX 10ML TOP ONE (08:32)
--- NOTE | 2018-09-23 09:49 | Operative Report ---
Post Operative Report Pre & Post Diagnosis Operation Date: 09/23/18 07:45 Pre-Op Diagnosis: Cervical spinal stenosis with myeloradiculopathy Post-Op Diagnosis: Same Procedure Operation Date: 09/23/18 07:45 Actual Procedures #1 anterior cervical corpectomy with bilateral foraminotomies C5. #2 anterior cervical arthrodesis C4-C6. #3 placement of peek cage 27 mm in height C4-C6. #4 application of globus plate and screws C4-C6. #5 place of locally harvested morselized autograft combined with DBM and interbody cage. Surgeon Garrett Aj DO Product Development Director Carisa Giraldo Estimated Blood Loss 50 Findings Consistent with Post-Op Diagnosis Specimens None Indications This is a 78-year-old male who presents with chronic persistent neck and arm symptoms. After failing extensive course of nonoperative care is here for surgical intervention. Description of Procedure Patient was met with identified and informed consent obtained. Patient was then taken to the operative suite underwent intubation placed in the supine position on the Jayme table with head Aly faculty head. All bony prominences well- padded eyes inspected to ensure no external pressure placed upon the peer at this point the anterior cervical spine was prepped and draped in a normal sterile fashion. The assistance of fluoroscopy to find the C5 vertebral body. A transverse incision was placed along the right anterior aspect of the cervical spine overlying this region. Sharp dissection with the assistance of bipolar electrocautery was performed down to and exposing the anterior cervical spine from C4-C6. Self-retaining retractors placed. Then performed a complete discectomy of see 4 5 out to the uncovertebral joints bilaterally followed by C5-6. [place] distracting pins were then placed in C4 and C6 to distract across the C5 vertebral body. Then performed a complete corpectomy of C5 including removal of all posterior annular fibers longitudinal ligament bilateral foraminotomies performed. Endplates were then burred to subcortical bleeding bone and a 27 mm peek cage filled with locally harvested morselized autograft and DBM tapped in position. Distraction apparatus removed. Globus plate and screws applied with the assistance of fluoroscopy. The incision was then copiously irrigated explored to ensure no damage to surrounding structures remaining bleeding. A 10 round KVNG drain inserted. The incision was then closed with 2 Vicryl in the fascia and 4 Monocryl for final skin closure. Steri-Strips traditional placed. Patient will continue to PACU stable condition. Please note Carisa Giraldo present throughout the entire procedure involved in patient positioning complex portions of the surgery. I attest to the content of the Intraoperative Record and any orders documented therein. Any exceptions are noted below.
[2018-09-23] MEDS ORDERED: SUCCINYLCHOLINE CHLORIDE 20 MG/ML 10 ML VIAL ONE (10:05)
--- NOTE | 2018-09-23 10:28 | Fluoroscopy Report ---
FL cervical 2-3V CLINICAL HISTORY: C5 CORPECTOMY, C4-C6 FUSION COMPARISON STUDY: None. FLUOROSCOPY TIME: 14 seconds. FLUOROSCOPIC IMAGES: 2. FINDINGS: Images demonstrate a C5 corpectomy and C4-C6 anterior discectomy and fusion. Hardware is in tact. There are no unexpected radiopaque foreign bodies. Cervical drain is in place. IMPRESSION: Fluoroscopic images demonstrating a C5 corpectomy and C4-C6 anterior discectomy and fusi on. Electronically signed by: Edgardo King M.D. 09/23/2018 10:26 AM
--- NOTE | 2018-09-23 10:56 | Anesthesiology Progress Note ---
Date of Service September 23, 2018 Anesthesia Post Procedure Vital Signs Vital Signs: Temp Pulse Resp BP Pulse Ox 09/23/18 10:50 36.3 C L 54 L 18 146/72 H 93 09/23/18 10:40 55 L 19 159/78 H 94 09/23/18 10:30 60 20 154/79 H 94 09/23/18 10:20 61 22 146/80 H 93 09/23/18 10:10 62 20 151/76 H 95 09/23/18 10:00 67 20 153/76 H 96 09/23/18 09:51 36 C L 74 21 146/79 H 96 09/23/18 06:10 36.9 C 54 L 16 174/103 H 97 Transfer of Care Handoff Completed per policy Notes Mental Status: alert / awake / arousable Patient Amnestic to Procedure: Yes Nausea / Vomiting: adequately controlled Pain: adequately controlled Airway Patency, RR, SpO2: stable & adequate BP & HR: stable & adequate Hydration State: stable & adequate Anesthetic Complications: no major complications apparent and Pt Satisfied with anesthetic care Notes: The patient is awake and comfortable. His neck has no swelling.
[2018-09-23] MEDS ORDERED: LORazepam 0.5 MG TAB PO PRN (11:17)
[2018-09-23] MEDS ORDERED: DO NOT ADMINISTER PNEUMOCOCCAL VACCINE PRN (11:17)
[2018-09-23] MEDS ORDERED: OXYCODONE HCL IR 5 MG TAB (IMMEDIATE RELEASE) PO PRN (11:17)
[2018-09-23] MEDS ORDERED: ACETAMINOPHEN 1,000 MG/100 ML VIAL IV PRN (11:17)
[2018-09-23] MEDS ORDERED: DiphenhydrAMINE HCL 50 MG/ML VIAL IV PRN (11:17)
[2018-09-23] MEDS ORDERED: DEXAMETHASONE SOD PHOSPHATE 8 MG in SYRINGE 0 ML IV PRN (11:17)
[2018-09-23] MEDS ORDERED: HYDROmorphone INJ 0.5 MG/0.5 ML SYR IV PRN (11:17)
[2018-09-23] MEDS ORDERED: NALOXONE HCL 0.4 MG/1 ML VIAL/CARP IV PRN (11:17)
[2018-09-23] MEDS ORDERED: MAGNESIUM HYDROXIDE SUSP 30 ML UDC PO PRN (11:17)
[2018-09-23] MEDS ORDERED: DO NOT ADMINISTER FLU VACCINE PRN (11:17)
[2018-09-23] MEDS ORDERED: RACEPINEPHRINE 2.25% NEBU SOLN 0.5 ML VIAL INH PRN (11:17)
[2018-09-23] MEDS ORDERED: LORazepam 0.5 MG/1 ML VIAL IV PRN (11:17)
[2018-09-23] MEDS ORDERED: ePHEDrine sulfate 50 MG/ML SYR ONE (11:27)
[2018-09-23] MEDS ORDERED: SCOPOLAMINE 1.5 MG TDSY TD SCH (12:00)
[2018-09-23] MEDS: LACTATED RINGER'S 1,000 ML IV SCH ×2 (12:39→20:12)
[2018-09-23] MEDS ORDERED: NON-FORMULARY MEDICATION (Oxycodone 5 MG) PO SCH (14:00)
[2018-09-23] MEDS: CEFAZOLIN 2000MG 2,000 MG/15 ML SYR IV SCH ×2 (14:36→22:08)
[2018-09-23] MEDS: CHECK SCOPOLAMINE PATCH PLACEMENT SCH (16:32)
[2018-09-23] MEDS: METOPROLOL TARTRATE 25 MG TAB PO SCH (20:09)
[2018-09-23] MEDS: DOCUSATE SODIUM 100 MG CAP PO SCH (20:10)
[2018-09-23] MEDS ORDERED: FINASTERIDE 5 MG TAB PO SCH (21:00)
[2018-09-23] MEDS ORDERED: ATORVASTATIN 40 MG TAB PO SCH (21:00)
[2018-09-23] MEDS ORDERED: TAMSULOSIN HCL 0.4 MG CAP PO SCH (21:00)
[2018-09-24] MEDS: CHECK SCOPOLAMINE PATCH PLACEMENT SCH ×2 (00:42→09:19)
[2018-09-24] MEDS: CEFAZOLIN 2000MG 2,000 MG/15 ML SYR IV SCH (06:16)
--- NOTE | 2018-09-24 07:56 | Anesthesiology Progress Note ---
Date of Service September 24, 2018 Anesthesia Post Procedure Vital Signs Vital Signs: Temp Pulse Pulse Pulse Resp BP BP 09/24/18 07:46 36.8 C 57 L 16 163/82 H 09/24/18 06:13 09/24/18 06:10 36.7 C 57 L 16 149/72 H 178/82 H 09/24/18 04:21 58 L 18 09/24/18 04:10 36.9 C 57 L 16 171/85 H 09/24/18 02:10 36.7 C 55 L 16 171/82 H 09/24/18 00:10 36.6 C 55 L 16 168/83 H 09/23/18 23:28 56 L 15 09/23/18 23:12 09/23/18 22:10 36.5 C 54 L 20 163/84 H 09/23/18 20:28 62 09/23/18 20:10 36.5 C 95 H 20 162/79 H 09/23/18 20:08 63 161/83 H 09/23/18 19:23 52 L 16 09/23/18 17:59 36.5 C 67 17 153/64 H 09/23/18 16:14 36.3 C L 56 L 18 189/77 H 09/23/18 15:33 68 16 09/23/18 14:14 36.7 C 50 L 16 168/79 H 09/23/18 13:19 36.6 C 61 18 159/78 H 09/23/18 12:17 58 L 18 160/84 H 09/23/18 11:46 48 L 18 149/69 H 09/23/18 11:35 47 L 20 09/23/18 11:10 36.6 C 53 L 20 165/80 H 09/23/18 11:01 53 L 21 148/78 H 09/23/18 10:50 36.3 C L 54 L 18 146/72 H 09/23/18 10:40 55 L 19 159/78 H 09/23/18 10:30 60 20 154/79 H 09/23/18 10:20 61 22 146/80 H 09/23/18 10:10 62 20 151/76 H 09/23/18 10:00 67 20 153/76 H 09/23/18 09:51 36 C L 74 21 146/79 H Pulse Ox 09/24/18 07:46 90 09/24/18 06:13 93 09/24/18 06:10 90 09/24/18 04:21 95 09/24/18 04:10 96 09/24/18 02:10 96 09/24/18 00:10 94 09/23/18 23:28 93 09/23/18 23:12 95 09/23/18 22:10 95 09/23/18 20:28 09/23/18 20:10 95 09/23/18 20:08 09/23/18 19:23 94 09/23/18 17:59 93 09/23/18 16:14 96 09/23/18 15:33 94 09/23/18 14:14 95 09/23/18 13:19 91 09/23/18 12:17 93 09/23/18 11:46 94 09/23/18 11:35 95 09/23/18 11:10 94 09/23/18 11:01 93 09/23/18 10:50 93 09/23/18 10:40 94 09/23/18 10:30 94 09/23/18 10:20 93 09/23/18 10:10 95 09/23/18 10:00 96 09/23/18 09:51 96 Notes Mental Status: alert / awake / arousable and participated in evaluation Nausea / Vomiting: adequately controlled Pain: adequately controlled Airway Patency, RR, SpO2: stable & adequate BP & HR: stable & adequate Hydration State: stable & adequate
[2018-09-24] MEDS: METOPROLOL TARTRATE 25 MG TAB PO SCH (08:54)
[2018-09-24] MEDS: DOCUSATE SODIUM 100 MG CAP PO SCH (08:55)
[2018-09-24] MEDS ORDERED: LISINOPRIL 40 MG TAB PO SCH (09:00)
[2018-09-24] MEDS ORDERED: AMLODIPINE BESYLATE 5 MG TAB PO SCH (09:00)
[2018-09-24] MEDS ORDERED: MULTIVITAMIN TAB PO SCH (09:00)
[2018-09-24] MEDS ORDERED: ASPIRIN 81 MG ECTAB PO SCH (09:00)
--- NOTE | 2018-09-24 11:36 | Discharge Summary ---
Date of Service September 24, 2018 Admission HPI Per Admitting Provider This is a 78-year-old male who presents with chronic persistent neck and arm pain. After failing extensive course of nonoperative care is here for surgical intervention. Principal Diagnosis Cervical spinal stenosis with myeloradiculopathy Discharge Data Allergies Allergy/AdvReac Type Severity Reaction Status Date / Time amiodarone Allergy Unknown rash Verified 09/23/18 06:09 Cipro Allergy Unknown rash Verified 08/24/17 07:42 ciprofloxacin Allergy Unknown rash Verified 09/23/18 06:09 Procedures Performed Operation Date: 09/23/18 07:45 Actual Procedures p C5 Corpectomy, C4-C6 Anterior Cervical Discectomy and Fusion - Garrett Aj DO Ordered Studies 09/23/18 07:45 FL cervical 2-3V Routine FL fluoroscopy <1hr Routine Hospital Course (1) Cervical stenosis of spinal canal: Patient underwent anterior cervical corpectomy tolerated this well was taken to the orthopedic for postoperative. Postop day 1 is neck and head symptoms markedly improved. No numbness and tingling in the arms. Swallowing well. No hoarseness. Subsequently discharged home. Discharge orders and instructions found in the chart for further review. Total Time Total Time Spent Total Time Spent (In Minutes): 20 minutes Discharge Plan Discharge Items Patient Disposition: Home - Self-Care Reason For Visit: Spinal Stenosis, Cervical Region Discharge Diagnosis: Cervical spinal stenosis with myelopathy Discharge Goals: Decrease discomfort Activity: Per 'Additional Instructions' section Non-emergency contact: Primary Care Provider Call non-emergency contact if: you have any medication questions Follow-up/Referrals: Gabbi rGeenberg MD [Primary Care Provider] - Diet: Regular Addtl Provider Instructions: ACTIVITY RECOMMENDATIONS: SELF CARE INSTRUCTIONS AFTER CERVICAL FUSIONS 1. No smoking. Smoking drastically decreases the chance of a solid fusion. 2. No bending, lifting more than 5 pounds, or twisting (roll like a log when turning in bed). 3. You may shower 3 days after surgery. Thoroughly dry wound. Do not soak in the tub. 4. Cervical collar: Must be worn at all times including sleeping. You may remove the brace only to bath, eat and if you are sitting in a recliner. 5. Please walk as much as you can for exercise. Gradually increase the distance that you walk as your endurance increases. SPECIAL CARE INSTRUCTIONS: VERY IMPORTANT TO READ AND REVIEW A. Do not take any anti-inflammatory medications (i.e. Indocin, Advil, Aspirin, Naprosyn, Aleve, Motrin, etc.) as these may inhibit the chance of a solid fusion. Tylenol is okay to take. B. Your surgical incision has been closed with a cosmetic suture under the skin that will dissolve in about 6 weeks. In 14 days, you can use a pair of clean scissors and cut the suture that is left outside of the skin at the ends of your incision. C. Complications are uncommon, but please contact us if you have any signs or symptoms of: 1. wound infection (fever higher than 102.5 degrees F, redness, separation of wound, drainage, or increasing pain from the incision) 2. blood clots in legs (pain, swelling, redness and warmth in legs) 3. urinary tract infection (fever higher than 102.5 degrees, burning upon urination or increased frequency of urination) 4. nerve problems (inability to walk on your toes or heels, numbness, loss of bowel or bladder control) 5. any other symptoms that concern you. D. Please call the office at if you have any concerns or questions about your operation or recovery. MANAGING PAIN AFTER SPINAL SURGERY 1. Narcotic medication is intended for short-term use and will be provided for surgical pain. Surgical pain usually lasts for a period of 4-6 weeks. Narcotic medication includes Percocet, Vicodin, Darvocet, Tylenol #3 or Lortab. 2. Longer-term pain is more appropriately treated with non-narcotic medication such as Tylenol ES. 3. Muscle spasm is not appropriately treated with narcotics. Muscle relaxers such as Soma, Flexeril or Skelaxin can be used along with Tylenol ES. 4. Remember that we all live with some "aches and pains". This is not unusual or uncommon after an injury or as we get older. 5. We will provide appropriate medication within the normal guidelines of their prescribed use. We will also be very cautious and aware of potential abuse and extended duration of patients' medication needs. 6. Please allow 2-3 days to process refills. Prescriptions will not be mailed but must be picked up at the office. FOLLOW UP VISIT: Keep your scheduled follow-up appointment. Any questions, please call the office at . Prescriptions: New oxycodone 5 mg Tablet 5 mg PO Q4H PRN (Reason: Pain) Qty: 20 RF: 0 Continued multivitamin Tablet 1 tab PO QAM RF: 0 atorvastatin 40 mg Tablet 40 mg PO PM RF: 0 amlodipine 5 mg Tablet 5 mg PO QAM RF: 0 aspirin 81 mg Tablet,Delayed Release (Dr/Ec) 81 mg PO QAM RF: 0 tramadol 50 mg Tablet 50 - 100 mg PO TID PRN (Reason: Pain) RF: 0 tamsulosin 0.4 mg Capsule 0.4 mg PO QPM RF: 0 oxycodone 5 mg Capsule 5 mg PO TID RF: 0 lisinopril 40 mg Tablet 40 mg PO QAM RF: 0 finasteride 5 mg Tablet 5 mg PO HS RF: 0 metoprolol tartrate 25 mg Tablet 25 mg PO BID RF: 0 Requip See Rx Instructions .ROUTE .COMPLEX RF: 0 Stand-Alone Forms: [facility] Discharge Orders: Discharge Order (Routine); Ordered 09/24/18 Ordered By: Garrett Aj Admission Data Admit Date/Time: 09/23/18 10:01 Attending Provider: Garrett Aj Admit Provider: Garrett Aj Primary Care Provider: Gabbi Greenberg Other Providers: Kenan Tee Service: Surgical Services
[2018-09-25] MEDS ORDERED: BISACODYL 5 MG TABEC PO PRN (10:01)
== END 2018-09-24 12:31 | disposition home or self-care (01) | DRG 473 ==
LOC: ASU 05:45 → 3E 10:01

== ENCOUNTER 2022-07-05 06:09 | Observation (INO) ==
--- NOTE | 2022-06-16 10:05 | PAT Medication Instructions ---
Medication Instructions Date of Service June 16, 2022 Home Medications Medication Instructions Recorded aspirin 81 mg tablet,delayed 81 mg PO QAM #90 tabs 01/24/19 release nitroglycerin 0.4 mg sublingual 0.4 mg sublingual UD PRN chest 01/24/19 tablet (Nitrostat) pain #20 tabs metoprolol succinate 25 mg 12.5 mg PO BID #90 tabs 09/25/21 tablet,extended release 24 hr finasteride 5 mg tablet 5 mg PO QAM #90 tabs 04/22/22 furosemide 20 mg tablet 20 mg PO QAM #90 tabs 04/22/22 lisinopril 40 mg tablet 40 mg PO QAM #90 tabs 04/22/22 ropinirole 1 mg tablet 1.5 mg PO BID #270 tabs 04/22/22 amlodipine 10 mg tablet 10 mg PO QAM #90 tabs 04/24/22 calcitriol 0.5 mcg capsule 0.5 mcg PO UD #45 caps 04/24/22 acetaminophen 650 mg 1,300 mg PO Q12H #120 tabs 05/12/22 tablet,extended release (Tylenol Arthritis Pain) oxycodone-acetaminophen 5 mg-325 1 tab PO TID PRN pain #60 tabs 06/05/22 mg tablet aspirin 81 mg tablet,delayed release 81 mg PO QAM nitroglycerin 0.4 mg sublingual tablet (Nitrostat) 0.4 mg sublingual UD PRN ferrous sulfate 325 mg (65 mg iron) tablet (FeroSul) 325 mg PO QAM metoprolol succinate 25 mg tablet,extended release 24 hr 12.5 mg PO BID finasteride 5 mg tablet 5 mg PO QAM furosemide 20 mg tablet 20 mg PO QAM lisinopril 40 mg tablet 40 mg PO QAM ropinirole 1 mg tablet 1.5 mg PO BID amlodipine 10 mg tablet 10 mg PO QAM calcitriol 0.5 mcg capsule 0.5 mcg PO UD acetaminophen 650 mg tablet,extended release (Tylenol Arthritis Pain) 1,300 mg PO Q12H oxycodone-acetaminophen 5 mg-325 mg tablet 1 tab PO TID PRN rosuvastatin 20 mg tablet 20 mg PO QAM tamsulosin 0.4 mg capsule 0.4 mg PO HS Continue as directed nitroglycerin 0.4 mg sublingual tablet (Nitrostat) 0.4 mg sublingual UD PRN(if needed) DO NOT take the morning of surgery ferrous sulfate 325 mg (65 mg iron) tablet (FeroSul) 325 mg PO QAM furosemide 20 mg tablet 20 mg PO QAM lisinopril 40 mg tablet 40 mg PO QAM calcitriol 0.5 mcg capsule 0.5 mcg PO UD Take morning of surgery With a small sip of water, OTHERWISE NOTHING TO EAT OR DRINK AFTER MIDNIGHT: aspirin 81 mg tablet,delayed release 81 mg PO QAM (unless directed otherwise by surgeon) metoprolol succinate 25 mg tablet,extended release 24 hr 12.5 mg PO BID finasteride 5 mg tablet 5 mg PO QAM ropinirole 1 mg tablet 1.5 mg PO BID amlodipine 10 mg tablet 10 mg PO QAM acetaminophen 650 mg tablet,extended release (Tylenol Arthritis Pain) 1,300 mg PO Q12H oxycodone-acetaminophen 5 mg-325 mg tablet 1 tab PO TID PRN(if needed) rosuvastatin 20 mg tablet 20 mg PO QAM Take evening before surgery metoprolol succinate 25 mg tablet,extended release 24 hr 12.5 mg PO BID ropinirole 1 mg tablet 1.5 mg PO BID acetaminophen 650 mg tablet,extended release (Tylenol Arthritis Pain) 1,300 mg PO Q12H oxycodone-acetaminophen 5 mg-325 mg tablet 1 tab PO TID PRN(if needed) tamsulosin 0.4 mg capsule 0.4 mg PO HS Other Notes If you have any questions please call us at [phone] or [phone] or [phone] or [phone]
--- NOTE | 2022-06-21 12:09 | Anesthesiology Consultation ---
Date of Service June 21, 2022 Assessment & Plan (1) Encounter for pre-operative examination: Chart Review Chart Review: Pending: Refer to Additional Notes / Consult section (pending PCP clearance (workload note sent to PCP) ) and Patient seen in Pre Admission Testing -Discussed with Dr. Higuera- due to cardiac history and comorbidities- patient will need PCP optimization prior to surgery to ensure patient is optimized. Workload note sent to PCP -Pt is NOT a Same Day Joint candidate Per PAT appt on 06/21/22, patient denies any recent travel or large group activities. Pt is vaccinated for Covid. Will leave to surgeon's discretion if preop Covid testing needed. Educated on importance of using Covid precautions one week prior to surgery Left TKA 08/24/17= Done under SAB L3-4 with 1 attempt. Teaching & Discussion Pre-Anesthesia Teaching/Discussion Notes: Instructed NPO after midnight before surgery,except medications with 15 cc of water. Medication instructions provided according to the PAT guidelines. History Surgery Operation Date: 07/05/22 12:45 Proposed Procedures p Left Total Hip Arthroplasty - Logan Villegas MD Height/Weight Height: 5 ft 6 in Weight: 80 kg Allergies Allergy/AdvReac Type Severity Reaction Status Date / Time amiodarone Allergy Unknown rash Verified 06/16/22 08:51 ciprofloxacin [Cipro] Allergy Unknown rash Verified 06/16/22 08:51 Medications Home Medications Medication Instructions Recorded Confirmed Last Taken aspirin 81 mg tablet,delayed 81 mg PO QAM #90 tabs 01/24/19 06/16/22 Unknown release nitroglycerin 0.4 mg sublingual 0.4 mg sublingual UD PRN chest 01/24/19 06/16/22 Unknown tablet (Nitrostat) pain #20 tabs ferrous sulfate 325 mg (65 mg 325 mg PO QAM 04/30/20 06/16/22 Unknown iron) tablet (FeroSul) metoprolol succinate 25 mg 12.5 mg PO BID #90 tabs 09/25/21 06/16/22 Unknown tablet,extended release 24 hr finasteride 5 mg tablet 5 mg PO QAM #90 tabs 04/22/22 06/16/22 Unknown furosemide 20 mg tablet 20 mg PO QAM #90 tabs 04/22/22 06/16/22 Unknown lisinopril 40 mg tablet 40 mg PO QAM #90 tabs 04/22/22 06/16/22 Unknown ropinirole 1 mg tablet 1.5 mg PO BID #270 tabs 04/22/22 06/16/22 Unknown amlodipine 10 mg tablet 10 mg PO QAM #90 tabs 04/24/22 06/16/22 Unknown calcitriol 0.5 mcg capsule 0.5 mcg PO UD #45 caps 04/24/22 06/16/22 Unknown acetaminophen 650 mg 1,300 mg PO Q12H #120 tabs 05/12/22 06/16/22 Unknown tablet,extended release (Tylenol Arthritis Pain) oxycodone-acetaminophen 5 mg-325 1 tab PO TID PRN pain #60 tabs 06/05/22 06/16/22 Unknown mg tablet rosuvastatin 20 mg tablet 20 mg PO QAM 06/16/22 06/16/22 Unknown tamsulosin 0.4 mg capsule 0.4 mg PO HS 06/16/22 06/16/22 Unknown Past Medical History Medical History (Updated 06/22/22 @ 09:22 by Mireille Douglas PA-C) Anemia due to chronic kidney disease Aneurysm of abdominal aorta Monitoring by PCP 4.3 cm 02/2021 per vascular duplex Coronary artery disease S/P CABG X3 (2010), STENTS X5 (2002) Cyst of kidney, acquired Enlarged prostate with lower urinary tract symptoms (LUTS) Essential hypertension Hyperlipidemia Past myocardial infarction 2002, transferred from [facility] to [facility] Prostate cancer Hx - follows with urology; just monitoring it Restless legs syndrome Secondary hyperparathyroidism of renal origin Stage 3b chronic kidney disease Stenosis, cervical spine Exercise / Class Metabolic Activity III < 4 Walking/Shop/Light housework (no chest pain or SOB with flat surface ambulation ) Past Family History Family History Sister Family history of diabetes mellitus Brother Family history of diabetes mellitus Coronary heart disease Myocardial infarction Mother Family history of diabetes mellitus Father Lung cancer Other No family history of adverse response to anesthesia Denies family history of Ovarian cancer Prostate cancer Breast cancer Colorectal cancer Past Surgical History Surgical History Fusion of spine LUMBAR X2 H/O basal cell carcinoma excision History of appendectomy History of cardiac cath STENTS X5 (2002), [facility] History of cholecystectomy History of colonoscopy History of coronary artery bypass graft "SOB and chest pain, took me from [place] to [place] in [place]", CABG X3 (2010), [facility]; f/u PCP History of fusion of cervical spine 09/2018--normal ROM History of herniorrhaphy History of prostate biopsy 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 S/P gastric surgery Past Anesthesia History No Hx of Anesthesia Complications and No Family Hx of Anesthesia Complications History of PONV No Hx of PONV and No Hx of Motion Sickness Social History Smoking Status: Former smoker tobacco type: cigarettes Smoking cigarettes per day: HX 3 CIGARS/DAY; QUIT 2010 Do You Dip or Chew Tobacco: No Smoking End Date: 2010 Hx Alcohol Use: Yes Alcohol type: hard liquor alcohol intake frequency: holidays/special occasions only Hx Substance Use: No substance use type: does not use Review of Systems Possible blood transfusion with CABG in 2010 Patient denies chest pain, shortness of breath at rest, reflux, cough, wheezing, palpitations. No hx of seizures, stroke. No hx of blood clots. Physical Exam Vital Signs VITALS BP 144/70 P 62 TEMP 98.2 SP02 94% on RA RESP 16 Constitutional no acute distress ENMT Mouth: no TMJ clicking Thyromental Distance: > or= 3.5 Finger Breadths (4.0) Mallampati Class: III Top and bottom full dentures Neck + limited neck extension (significant) Respiratory normal respiratory effort; no respiratory distress Auscultation: lungs clear to auscultation bilaterally and + diminished lung s ounds (throughout); no wheezes Cardiovascular Rate/Rhythm: regular rate and regular rhythm Heart Sounds: no murmur Vessels: no carotid bruit Musculoskeletal Spine: no pain with cervical ROM Extremities: extremities normal to inspection Psychiatric Orientation: alert Lab Results Anesthesia Preop Results Results Anesthesia Widget: WBC 7.08 K/ul (4.8-10.8) 06/21/22 Hgb 13.2 g/dl (14.0-18.0) L 06/21/22 Hct 39.7 % (42.0-52.0) L 06/21/22 Plt 176 K/uL (130-400) 06/21/22 Na 140 mmol/L (136-145) 06/21/22 K 5.1 mmol/L (3.5-5.1) 06/21/22 Cl 106 mmol/L (98-107) 06/21/22 CO2 31 mmol/L (21-32) 06/21/22 BUN 42 mg/dl (6-23) H 06/21/22 Creat 2.08 mg/dl (0.6-1.4) H 06/21/22 Glucose Level 108 mg/dl (70-99(Fasting)) H 06/21/22 PT 11.4 Seconds (9.0-12.0) 06/21/22 PTT 25.4 Seconds (21.0-31.0) 06/21/22 INR 1.1 (0.9-1.1) 06/21/22 Blood Type B Positive 06/21/22 Antibody Screen NEGATIVE 06/21/22 Testing Laboratory Results Elevated creatinine chronic and stable since at least 2020 Electrocardiogram Date: 06/21/22 Findings: + SB @ (55bpm ) Otherwise normal EKG per cardio Chest X-Ray Date: 06/21/22 FINDINGS: PA and lateral chest radiographs are compared to study dated 09/10/2018. The patient is status post midline sternotomy. The heart is enlarged noting atherosclerotic calcification of the thoracic aorta. The pulmonary vasculature is noncongested. Chronic interstitial thickening is similar to previous. Scarring/atelectasis is noted at the lung bases. Calcified pleural plaque is again seen at the right lung base. There is no pneumothorax. The skeletal structures are osteopenic. There are healed left-sided rib fractures. Degenerative change is noted in the thoracic spine. IMPRESSION: Cardiomegaly and chronic parenchymal changes as above with no active disease in the chest. Echocardiogram Date: 09/02/18 EF: 55 to 60% LV Function: normal RWMA: + none Other Findings: + diastolic dysfunction (Grade 1); no LVH Sclerotic aortic valve without significant stenosis No significant changes from prior study on 08/03/2017 Stress Test Date: 04/20/18 Type: DSE No ischemic changes noted on DSE imaging at 80% MPHR. Cannot rule out ischemic changes of fast heart rate. Nondiagnostic dobutamine EKG as heart rate was not attained. Appropriate BP response. No arrhythmia. No chest pain. Normal LV size and systolic function, EF 60-65%. No regional wall motion abnormalities. No LVH. Type I DD. Mild MR. COVID-19 Risk Screen Screening Information COVID-19 Screen Date: 06/21/22 Exposure 21 Days Family/Household +COVID Last 21 Days: No Exposure 10 Days Any COVID Exposure Last 10 Days: No Symptoms Last 10 Days Experienced COVID Sx Last 10 Days: No + COVID 0-90 Days COVID + in Last 0-90 Days: No Risk Plan COVID Risk Plan: No Risk Identified Patient Education COVID Preop Screening Education Complete: Yes
[~2022-07-05 06:09] MED LIST changes: -AMLO-110 PO; -ASPI81TA28 PO; -ATOR-26 PO; -CEFAZOLIN 2000MG IV PUSH 15 ML IV SCH; -DEXAMETHASONE 4 MG TAB PO SCH; -FINA5TAB PO; -GABAPENTIN 300 MG CAP PO SCH; -LACTATED RINGER'S 1000ML 1,000 ML IV SCH; +LR 60ML/HR IV SCH; -LSN40 PO; -METO25TA56 PO; -METOCLOPRAMIDE HCL 10 MG TAB PO SCH; +METOCLOPRAMIDE HCL 10 MG TABLET PO SCH; -MULT-878 PO; -OXYCODONE HCL 10 MG TABCR (OXYCONTIN) PO SCH; -ROPIVACAINE 5MG/ML 30 ML 150 MG, BUPIVACAINE 0.5% MPF INJ 30 ML, EpINEphrine HCL INJ 0.... INFIL SCH; +SODIUM CHLORIDE 0.9% 1000ML IV SCH; -TAMS0.4C38 PO; +TRANEXAMIC ACID 1,000 MG **IV Pre-op IV SCH; +ceFAZolin 2000MG 2,000 MG/15 ML SYR IV SCH; +dexAMETHasone 4 MG TAB PO SCH
[2022-07-05] MEDS ORDERED: BUPIVACAINE 0.5 % 5 MG/1 ML PF 10ML VIAL ONE (06:30)
[2022-07-05] MEDS ORDERED: ROPIVACAINE 0.5% 5 MG/ML 30 ML VIAL ONE (07:02)
[2022-07-05] MEDS ORDERED: MIDAZOLAM HCL 1 MG/ML 2ML VIAL ONE (07:36)
--- NOTE | 2022-07-05 08:57 | History & Physical Bridge Note ---
Date of Service July 05, 2022 History & Physical Bridge Note I have examined the patient, reviewed the History & Physical and in the interval since the performance of the History & Physical I have noted the following changes of clinical significance: no changes noted
[2022-07-05] MEDS ORDERED: ONDANSETRON INJ 2 MG/ML 2 ML VIAL ONE (09:14)
[2022-07-05] MEDS ORDERED: PROPOFOL IV EMULSION 10 MG/ML 20 ML VIAL IV ONE (09:14)
[2022-07-05] MEDS ORDERED: LIDOCAINE 2% MPF LOCAL 5 ML VIAL ONE (09:14)
[2022-07-05] MEDS ORDERED: DEXAMETHASONE SOD INJ 4 MG/ML VIAL ONE (09:14)
[2022-07-05] MEDS ORDERED: ePHEDrine sulfate 50 MG/ML SYR ONE (09:14)
[2022-07-05] MEDS ORDERED: BUPIVACAINE/EPINEPHRINE 0.5% MPF 1:200,000 30 ML VIAL ONE (09:22)
--- NOTE | 2022-07-05 10:32 | Operative Report ---
PG Post Operative Report Pre & Post Diagnosis Operation Date: 07/05/22 08:50 Pre-Op Diagnosis: Left Hip Degenerative Joint Disease Post-Op Diagnosis: Left Hip Degenerative Joint Disease I identified the patient and participated in the time-out.: Yes Procedure Operation Date: 07/05/22 08:50 Actual Procedures p Left Total Hip Arthroplasty(Left) - Logan Villegas MD Surgeon Logan Villegas MD Professional Development Director Jorge Garner PA-C Estimated Blood Loss 200 Findings Consistent with Post-Op Diagnosis Operative findings revealed grade 4 [id number] disease with full-thickness cartilage loss of the femoral head and acetabular areas. There was not much in the way of osteophyte formation. Small joint effusion. Specimens Right femoral head sent for pathology. Anesthesia Type Spinal MAC Complications none Disposition Accompanied Patient To Recovery: No Indications Patient is an 82-year-old fairly active gentleman said a long history of multiple orthopedic problems in the past patient been through extensive conserv ative treatment and over the past year he developed increased pain discomfort in his left hip and groin area. X-rays show advanced hip arthritis. Elected proceed with surgical treatment. Description of Procedure Operative implants consist of: 1 Biomet G7 size 56 mm acetabular shell. 2. 6.5 cancellous acetabular screws 1 of 35 mm length and 1 of 30 mm length. 3. Chambers hole limiter. 4. Highly cross-linked polyethylene liner with a 56 mm outer diameter 36 mm diameter. 5. DePuy Corail size 11 KLA femoral stem. 6. +5/36 mm ceramic articular ball. The patient was taken the operating, identified, placed on the operating table supine position protectors were properly padded. IV antibiotics tried by anesthesia team. A spinal anesthetic had been implemented holding area. Jean catheter was placed in sterile fashion. The patient then placed in the right lateral decubitus position. An axillary roll was placed. A Stulberg hip positioner was used for positioning. Left hip and leg were then prepped and draped in usual sterile fashion. A posterolateral approach to the left hip was then performed to a curvilinear incision centered over the greater trochanter. Sharp dissection was carried through subcutaneous tissue down to level the IT band gluteal fascia the IT band gluteal fascia incised longitudinally in line with skin incision. The underlying greater bursa was excised. The piriformis and external rotators were tagged and taken off the posterior aspect of the hip joint capsule. Great care was taken throughout the procedure to protect the sciatic nerve at all times. Hip was internally rotated and dislocated. Femoral neck osteotomy was then made about 20 mm above the lesser trochanter. Femoral head was removed and sent for pathology. The femur was retracted anteriorly. Attention drawn the acetabulum. The acetabular labrum was excised. The pulmonary fat was excised. Sequential reaming the acetabular was then performed again with a size 47 and progressing up to 55. We then reamed a little bit with a 56 reamer and then placed a 56 mm cup in about 40 degrees lateral opening and 20 degrees of anteversion. Was fixed with two 6.5 cancellous acetabular screws. A trial liner was placed. Attention drawn the femur. The proximal femur was then with a Zooppa cutter followed by canal finder. I then broached beginning with size 8 and progressing up to 11. Got excellent fit 11. We trialed the hip and hip was fully stable with a +5 articular ball. He did clinically seem a little bit long on this leg preoperatively so I did not really want to lengthen him if anything shortened a little bit. I felt like I did achieve these goals and maintained excellent stability. We elect to place these implants. Nupathe all trial implants were removed. Chambers hole limiter was placed. Highly cross-linked polyethylene liner was placed. A size 11 KLA femoral stem was impacted in position. +5/36 mm ceramic articular ball was placed. Hip was located once again found to be stable. Attention drawn to closing. The wounds irrigated cosigns pulsatile lavage solution. I did inject locally with 60 cc of half percent Marcaine with epinephrine. The posterior capsule and external rotators were repaired through drill holes in the posterior trochanter with #2 Tycron suture. The IT band gluteal fascia then closed in 1 PDS suture running fashion for subcutaneous tissues then closed with 2 layers the deep layer #1 Vicryl suture and subcutaneous tissues with 2-0 Dexon suture in a buried interrupted fashion. Skin was closed skin rayna. Leg was then cleaned and dried and sterile dressed with Xeroform, 4 x 4's, ABD pad, foam tape was applied. Patient then transferred to the recovery room in stable condition. Patient tolerated procedure well and there were no complications. Jorge Garner, my physician life science research assistant, was present for the entire procedure. His assistance was essential and required for appropriate patient positioning, prepping and draping, surgical exposure, performing the technical details of the operation, placement the implants, closure of the wound, and placement of the sterile bandage. I attest to the content of the Intraoperative Record and any orders documented therein. Any exceptions are noted below.
--- NOTE | 2022-07-05 10:55 | XRay Report ---
XR hip 1V LT w pelvis CLINICAL HISTORY: IN PACU - Post Surgical TECHNIQUE: 2 views of the left hip and single frontal view of the pelvis were obtained. Comparison: Comparison is made to hip radiograph 06/15/2022 FINDINGS: Patient is status post total hip arthroplasty with expected postsurgical changes including soft tissu e swelling and subcutaneous emphysema. Degenerative changes are seen in the right hip. Vascular calc ifications are seen. IMPRESSION: Expected postoperative appearance status post placement of total hip arthroplasty. ACT 112: Negative or not required by law. Electronically signed by: Oziel Quintero M.D. 07/05/2022 10:53 AM
[2022-07-05] MEDS ORDERED: ONDANSETRON INJ 2 MG/ML 2 ML VIAL IV PRN (11:39)
[2022-07-05] MEDS ORDERED: MAGNESIUM HYDROXIDE SUSP 30 ML UDC PO PRN (11:39)
[2022-07-05] MEDS ORDERED: HYDROmorphone INJ 0.5 MG/0.5 ML SYR IV PRN (11:39)
[2022-07-05] MEDS ORDERED: ALUMINUM/MAGNESIUM SUSP 30 ML UDC PO PRN (11:39)
[2022-07-05] MEDS ORDERED: METOCLOPRAMIDE HCL INJ 5 MG/ML 2 ML VIAL IV PRN (11:39)
[2022-07-05] MEDS ORDERED: bisacodyL 10 MG SUPP PR PRN (11:39)
[2022-07-05] MEDS ORDERED: NITROGLYCERIN SL 0.4 MG/TAB TAB SL PRN (11:39)
[2022-07-05] MEDS ORDERED: NO NSAIDS SCH (11:39)
[2022-07-05] MEDS ORDERED: NALOXONE HCL 0.4 MG/1 ML VIAL/CARP IV PRN (11:39)
[2022-07-05] MEDS: SODIUM CHLORIDE 0.9% 1000ML 1,000 ML IV SCH ×2 (12:03→21:12)
--- NOTE | 2022-07-05 12:20 | Anesthesiology Progress Note ---
Date of Service July 05, 2022 Anesthesia Post Procedure Vital Signs Vital Signs: Temp Pulse Pulse Resp BP Pulse Ox O2 Del Method 07/05/22 12:16 36.2 C L 63 14 133/71 95 Nasal Cannula 07/05/22 12:05 Nasal Cannula 07/05/22 11:47 36.4 C L 62 17 117/65 97 Nasal Cannula 07/05/22 11:25 58 L 14 126/60 98 Room Air 07/05/22 11:15 60 14 124/62 96 Room Air 07/05/22 11:05 36.4 C L 65 16 128/60 93 Room Air 07/05/22 10:55 64 14 120/58 L 95 Room Air 07/05/22 10:45 64 16 109/54 L 100 Room Air 07/05/22 10:35 69 14 107/50 L 99 Oxymask 07/05/22 10:28 36.3 C L 86 20 105/52 L 97 Oxymask 07/05/22 06:56 36.6 C 51 L 20 152/84 H 92 Room Air O2 Flow Rate 07/05/22 12:16 2 07/05/22 12:05 2 07/05/22 11:47 2 07/05/22 11:25 07/05/22 11:15 07/05/22 11:05 07/05/22 10:55 07/05/22 10:45 07/05/22 10:35 6 07/05/22 10:28 11 07/05/22 06:56 Pain Intensity Left Hip: Pain Intensity: 6 Transfer of Care Handoff Completed per policy Notes Mental Status: alert / awake / arousable Patient Amnestic to Procedure: Yes Nausea / Vomiting: adequately controlled Pain: adequately controlled Airway Patency, RR, SpO2: stable & adequate BP & HR: stable & adequate Hydration State: stable & adequate Neuraxial Anesthesia: was administered and sensory block is resolving Anesthetic Complications: no major complications apparent
[2022-07-05] MEDS ORDERED: CALCITRIOL 0.25 MCG CAPSULE PO SCH (13:00)
[2022-07-05] MEDS: ACETAMINOPHEN 500 MG TAB PO SCH ×2 (13:48→21:11)
[2022-07-05] MEDS: ASCORBIC ACID 500 MG TAB PO SCH (15:20)
[2022-07-05] MEDS: ceFAZolin 1000MG 1,000 MG/7.5 ML SYR IV SCH (15:42)
[2022-07-05] MEDS: oxyCODONE HCL IR 5 MG TAB (IMMEDIATE RELEASE) PO PRN ×2 (16:26→22:35)
[2022-07-05] MEDS ORDERED: TRANEXAMIC ACID / 0.7% NACL 1,000 MG/100 ML BAG IV SCH (16:30)
[2022-07-05] MEDS ORDERED: DOCUSATE SODIUM/SENNA 50/8.6MG TAB PO SCH (21:00)
[2022-07-05] MEDS ORDERED: SENNA 8.6 MG TAB PO SCH (21:00)
[2022-07-05] MEDS ORDERED: TAMSULOSIN HCL 0.4 MG CAP PO SCH (21:00)
[2022-07-05] MEDS: rOPINIRole HCL 1 MG TABLET PO SCH (21:10)
[2022-07-05] MEDS: ASPIRIN 81 MG ECTAB PO SCH (21:11)
[2022-07-05] MEDS: METOPROLOL SUCC 25MG EXT REL TAB PO SCH (21:11)
[2022-07-05] MEDS: DOCUSATE SODIUM 100 MG CAP PO SCH (21:11)
[2022-07-06] MEDS: ceFAZolin 1000MG 1,000 MG/7.5 ML SYR IV SCH (01:08)
[2022-07-06] MEDS: ACETAMINOPHEN 500 MG TAB PO SCH ×2 (06:11→13:17)
[2022-07-06] MEDS: DOCUSATE SODIUM 100 MG CAP PO SCH (07:46)
[2022-07-06] MEDS: ASPIRIN 81 MG ECTAB PO SCH (07:46)
[2022-07-06] MEDS: ASCORBIC ACID 500 MG TAB PO SCH (07:46)
[2022-07-06] MEDS: METOPROLOL SUCC 25MG EXT REL TAB PO SCH (07:46)
[2022-07-06] MEDS: rOPINIRole HCL 1 MG TABLET PO SCH (07:47)
[2022-07-06 07:56] LABS: Basophils # (auto) 0.02 K/uL (0-0.2); Basophils % (auto) 0.1 %; Hematocrit (blood only) 37.3 % (42.0-52.0); Hemoglobin 12.8 g/dl (14.0-18.0); Immature Granulocytes # (auto) 0.07 K/uL (0.01-0.20); Immature Granulocytes % (auto) 0.5 %; Lymphocytes # (auto) 0.64 K/uL (1.2-3.4); Lymphocytes % (auto) 4.6 %; Mean Corpuscular Hemoglobin 32.8 pg (25.0-34.0); Mean Corpuscular Hgb Conc 34.3 g/dL (32.0-36.0); Mean Corpuscular Volume 95.6 fL (80.0-100.0); Monocytes # (auto) 2.11 K/uL (0.11-0.59); Monocytes % (auto) 15.2 %; Neutrophils # (auto) 11.03 K/uL (1.40-6.50); Neutrophils % (auto) 79.6 %; Platelet Count 139 K/uL (130-400); RDW Coefficient of Variation 14.7 % (11.5-14.5); RDW Standard Deviation 51.4 fL (36.4-46.3); White Blood Count 13.87 K/ul (4.8-10.8)
[2022-07-06 08:12] LABS: BUN Creatinine Ratio 18.9 (10-20); Calcium 9.2 mg/dl (8.6-10.3); Creatinine Clr Calc Pharmacy 29.6 ml/min; Est GFR (African American) 37.2 ml/min; Est GFR (Non-African American) 32.1 ml/min; Potassium 4.8 mmol/L (3.5-5.1)
[2022-07-06] MEDS ORDERED: lisinopril 40 MG TAB PO SCH (09:00)
[2022-07-06] MEDS ORDERED: ROSUVASTATIN CALCIUM 20 MG TAB PO SCH (09:00)
[2022-07-06] MEDS ORDERED: MULTIVITAMIN TAB PO SCH (09:00)
[2022-07-06] MEDS ORDERED: FINASTERIDE 5 MG TAB PO SCH (09:00)
[2022-07-06] MEDS ORDERED: amLODIPine BESYLATE 5 MG TAB PO SCH (09:00)
[2022-07-06] MEDS ORDERED: FUROSEMIDE 20 MG TAB PO SCH (09:00)
[2022-07-06] MEDS ORDERED: FERROUS SULFATE 325 MG TAB PO SCH (09:00)
[2022-07-06] MEDS: oxyCODONE HCL IR 5 MG TAB (IMMEDIATE RELEASE) PO PRN (11:15)
--- NOTE | 2022-07-06 13:36 | Progress Notes ---
DATE OF SERVICE: 07/06/2022 SUBJECTIVE: An 82-year-old gentleman postoperative day 1 from a left hip replacement. He is doing p retty well. Pain is controlled. No chest pain or shortness of breath. Not feeling dizzy or lighthe aded. He is hoping to go home. OBJECTIVE: VITAL SIGNS: Temperature is 36.5. Vital signs are stable. PHYSICAL EXAMINATION: GENERAL: Shows a pleasant, elderly male. He is sitting up in his bedside chair, looks comfortable. LUNGS: Clear to auscultation. HEART: Regular rate and rhythm. ABDOMEN: Soft, nontender, nondistended. EXTREMITIES: Grossly neurovascularly intact except as follows: Examination of the left hip reveals the dressing to be clean, dry and intact. Leg lengths were equal. Thigh is soft and supple. He is neurologically intact. LABORATORY DATA: Hemoglobin 12.8. Hematocrit 37.3. Electrolytes are stable. Chronically elevated creatinine. ASSESSMENT: An 82-year-old gentleman postoperative day 1 from a left hip replacement, doing quite we ll. Pain is controlled. His hip is located. He is neurologically intact. He is hoping to go home. PLAN: 1. DVT prophylaxis includes thigh-high TEDs, SCDs, and aspirin twice a day. 2. PT/OT. He can fully weightbear as tolerated. Needs to obey hip precautions. 3. Pain control, doing okay with current pain regimen. 4. Disposition: Plan to discharge to home with some home health today. Job ID: [id number]
--- NOTE | 2022-07-08 20:02 | Discharge Summary ---
Date of Service July 08, 2022 Discharge Data Procedures Performed Operation Date: 07/05/22 08:50 Actual Procedures p Left Total Hip Arthroplasty(Left) - Logan Villegas MD Hospital Course (1) S/P total left hip arthroplasty: This is a 82 year old patient admitted on 07/05/22 and underwent total hip arthroplasty. He tolerated the procedure well and there were no complications. Transferred to the PACU post op and later to the orthopedic floor for further care. He was given ancef for antibiotic prophylaxis. He was also given SEMAJ stockings, SCDs, and aspirin for DVT prophylaxis. Hemoglobin, hematocrit, and vital signs were monitored during his hospital stay and remained stable. Did not require any blood transfusions. There were no complications during his hospital stay. By post op day #1 the patient was tolerating a regular diet, pain was reasonably controlled with oral pain medicine, and he was participating in physical therapy. On post op day #1 the patient was discharged home and set up with home health care. He was given printed discharge instructions including prescriptions for extra strength tylenol, aspirin, cefadroxil, zofran, senokot, and oxycodone. Continue hip precautions. Continue physical therapy, weight bearing as tolerated. Continue SEMAJ stockings. Follow up approximately 2 weeks post op or sooner if there are problems or concerns. Coding Level of Care Code None Diagnoses S/P total left hip arthroplasty Z96.642
== END 2022-07-06 14:45 | disposition home health service (06) ==
LOC: ASU 06:09 → 3N 06:09